=== PATIENT | male | born 1965 | race African-American/Black ===

== ENCOUNTER 2019-10-02 01:11 | Emergency (ER) | payer SELFPAY ==
--- NOTE | 2019-10-02 02:13 | ER ---
Nurse's Notes [facility] Name: Samuel Guzman Age: 54 yrs Sex: Male : 1965 Arrival Date: 10/02/2019 Time: : Bed 20 Private MD: Diagnosis: Fever, unspecified Presentation: 10/01 01:35 Chief complaint: Patient states: pt states he has had a fever for 3 days is taking bb tylenol and benadryl he is concerned about having COVID because his is immunocompromised. Coronavirus screen: chills, fever. Ebola Screen: No symptoms or risks identified at this time. Initial Sepsis Screen: Does the patient meet any 2 criteria? No. Patient's initial sepsis screen is negative. Does the patient have a suspected source of infection? No. Patient's initial sepsis screen is negative. Risk Assessment: Do you want to hurt yourself or someone else? Patient reports no desire to harm self or others. Onset of symptoms was September 29, 2019. 01:35 Method Of Arrival: Ambulatory bb 01:35 Acuity: FRANCISCO 3 bb Triage Assessment: 01:37 General: Appears in no apparent distress. Behavior is calm, cooperative. Pain: Denies bb pain. Neuro: Level of Consciousness is awake, alert, obeys commands, Oriented to person, place, time, situation. Cardiovascular: Heart tones S1 S2 present Capillary refill < 3 seconds Patient's skin is warm and dry. Respiratory: Airway is patent Respiratory effort is even, unlabored, Respiratory pattern is regular. GI: No deficits noted. No signs and/or symptoms were reported involving the gastrointestinal system. Derm: Skin is moist, Skin is normal, Skin temperature is warm. Musculoskeletal: Circulation, motion, and sensation intact. Historical: - Allergies: 01:37 No Known Allergies; bb - Home Meds: 01:37 Metoprolol Tartrate Oral [Active]; bb - PMHx: 01:37 Hypertension; bb - PSHx: 01:37 None; bb - Immunization history:: Adult Immunizations up to date. - Social history:: Smoking status: Patient reports the use of cigarette tobacco products, denies chronic smoking, but will smoke occasionally, Patient/guardian denies using alcohol. Screenin:38 Abuse screen: Denies threats or abuse. Nutritional screening: No deficits noted. bb Tuberculosis screening: No symptoms or risk factors identified. Fall Risk None identified. Assessment: 01:38 Reassessment: No changes from previously documented assessment. see triage assessment. bb 03:01 Reassessment: Patient and/or family updated on plan of care and expected duration. Pain bb level reassessed. Patient is alert, oriented x 3, equal unlabored respirations, skin warm/dry/pink. pt verbalized understanding of and agrees to plan of care discharge instructions given pt ambulated with steady gait to exit. Vital Signs: 01:35 BP 163 / 93; Pulse 65; Resp 16 S; Temp 100(O); Pulse Ox 97% on R/A; Weight 83.91 kg bb (R); Height 5 ft. 11 in. (180.34 cm) (R); Pain 0/10; 03:01 BP 160 / 97; Pulse 61; Resp 16 S; Temp 98.7(O); Pulse Ox 98% on R/A; Pain 0/10; bb 01:35 Body Mass Index 25.80 (83.91 kg, 180.34 cm) bb ED Course: 01:17 Patient arrived in ED. es 01:22 Pierce Sharp MD is Attending Physician. tw4 01:37 Triage completed. bb 01:37 Arm band placed on Patient placed in an exam room, on a stretcher, on pulse oximetry. bb 01:38 Patient has correct armband on for positive identification. Bed in low position. Call bb light in reach. 01:42 Pierce Sharp MD is Attending Physician. tw4 03:02 No provider procedures requiring assistance completed. Patient did not have IV access bb during this emergency room visit. Administered Medications: No medications were administered Outcome: 02:12 Discharge ordered by . tw4 03:02 Discharged to home ambulatory. bb 03:02 Condition: stable 03:02 Discharge instructions given to patient, Instructed on discharge instructions, follow up and referral plans. Demonstrated understanding of instructions, follow-up care. 03:02 Patient left the ED. bb Addendum: 10/06/2019 09:14 Addendum: COVID-19 Result: Negative result given to RN to notify pt. Attempted to i w contact pt regarding negative COVID-19 swab results. Unable to leave voice mail due to the number provided was either not a working number, the voice mail has not been set up, or the voice mailbox is full.. Signatures: Kaity Purvis Brenda RN RN Bee Carey RN RN iw Wadley, Terrence, MD MD tw4
--- NOTE | 2019-10-02 02:13 | EDPHYS ---
Physician Documentation [facility] Name: Samuel Guzman Age: 54 yrs Sex: Male : 1965 Arrival Date: 10/02/2019 Time: :17 Bed 20 Private MD: ED Physician Pierce Sharp HPI: 10/01 05:28 This 54 yrs old Black Male presents to ER via Ambulatory with complaints of Fever, tw4 sweating. 05:28 The patient reports fever, not measured (subjective). tw4 05:28 Onset: The symptoms/episode began/occurred 3 day(s) ago. Modifying factors: there are tw4 no obvious modifying factors. Associated signs and symptoms: Pertinent positives:. Severity of symptoms: At their worst the symptoms were moderate in the emergency department the symptoms are unchanged. The patient has not experienced similar symptoms in the past. Historical: - Allergies: 01:37 No Known Allergies; bb - Home Meds: 01:37 Metoprolol Tartrate Oral [Active]; bb - PMHx: 01:37 Hypertension; bb - PSHx: 01:37 None; bb - Immunization history:: Adult Immunizations up to date. - Social history:: Smoking status: Patient reports the use of cigarette tobacco products, denies chronic smoking, but will smoke occasionally, Patient/guardian denies using alcohol. ROS: 05:28 Cardiovascular: Negative for chest pain, palpitations, and edema, Respiratory: Negative tw4 for shortness of breath, cough, wheezing, and pleuritic chest pain, Abdomen/GI: Negative for abdominal pain, nausea, vomiting, diarrhea, and constipation, Back: Negative for injury and pain, MS/Extremity: Negative for injury and deformity, Skin: Negative for injury, rash, and discoloration. 05:28 Constitutional: Positive for fever. Exam: 05:28 Constitutional: This is a well developed, well nourished patient who is awake, alert, tw4 and in no acute distress. Head/Face: Normocephalic, atraumatic. Chest/axilla: Normal chest wall appearance and motion. Nontender with no deformity. No lesions are appreciated. Cardiovascular: Regular rate and rhythm with a normal S1 and S2. No gallops, murmurs, or rubs. Normal PMI, no JVD. No pulse deficits. Respiratory: Lungs have equal breath sounds bilaterally, clear to auscultation and percussion. No rales, rhonchi or wheezes noted. No increased work of breathing, no retractions or nasal flaring. Abdomen/GI: Soft, non-tender, with normal bowel sounds. No distension or tympany. No guarding or rebound. No evidence of tenderness throughout. Back: No spinal tenderness. No costovertebral tenderness. Full range of motion. MS/ Extremity: Pulses equal, no cyanosis. Neurovascular intact. Full, normal range of motion. Neuro: Awake and alert, GCS 15, oriented to person, place, time, and situation. Cranial nerves II-XII grossly intact. Motor strength 5/5 in all extremities. Sensory grossly intact. Cerebellar exam normal. Normal gait. Vital Signs: 01:35 BP 163 / 93; Pulse 65; Resp 16 S; Temp 100(O); Pulse Ox 97% on R/A; Weight 83.91 kg bb (R); Height 5 ft. 11 in. (180.34 cm) (R); Pain 0/10; 03:01 BP 160 / 97; Pulse 61; Resp 16 S; Temp 98.7(O); Pulse Ox 98% on R/A; Pain 0/10; bb 01:35 Body Mass Index 25.80 (83.91 kg, 180.34 cm) bb MDM: 01:49 Patient medically screened. tw4 05:28 Differential diagnosis: viral Infection, bacterial infection, URI, bronchitis. Data tw4 reviewed: vital signs, nurses notes. Data reviewed: lab test result(s), Flu: negative. Data interpreted: Pulse oximetry: Interpretation: normal. Counseling: I had a detailed discussion with the patient and/or guardian regarding: the historical points, exam findings, and any diagnostic results supporting the discharge/admit diagnosis, lab results. Special discussion: I discussed with the patient/guardian in detail that at this point there is no indication for admission to the hospital. It is understood, however, that if the symptoms persist or worsen the patient needs to return immediately for re-evaluation. 10/01 01:22 Order name: COVID-19 [facility] 10/01 01:22 Order name: Flu 10/01 01:22 Order name: Strep 10/01 01:22 Order name: Document PUI#; Complete Time: 01:49 tw4 10/01 01:22 Order name: Droplet/Contact Precautions; Complete Time: : tw4 10/01 02:54 Order name: Throat Culture [facility] 10/01 01:22 Order name: Labs collected and sent; Complete Time: :4 10/01 01:22 Order name: Notify [facility] [phone]/ ; Complete Time: 4 10/01 01:22 Order name: O2 Per Protocol; Complete Time: tw4 Administered Medications: No medications were administered Disposition: 10/02/19 02:12 Discharged to Home. Impression: Fever, unspecified. - Condition is Stable. - Discharge Instructions: Fever, Adult. - Medication Reconciliation Form, Thank You Letter, Antibiotic Education, Prescription Opioid Use form. - Follow up: Private Physician; When: Upon discharge from the Emergency Department; Reason: Recheck today's complaints, Continuance of care, Re-evaluation by your physician. - Problem is new. - Symptoms have improved. Signatures: Dispatcher [employer] Mirtha Lacey, RICKEY RN Pierce Traore MD MD tw4 Corrections: (The following items were deleted from the chart) 03:02 02:12 10/02/2019 02:12 Discharged to Home. Impression: Fever, unspecified. Condition is bb Stable. Forms are Medication Reconciliation Form, Thank You Letter, Antibiotic Education, Prescription Opioid Use. Follow up: Private Physician; When: Upon discharge from the Emergency Department; Reason: Recheck today's complaints, Continuance of care, Re-evaluation by your physician. Problem is new. Symptoms have improved. tw4
[2019-10-02 03:10] VITALS: BP 160/97; TEMP 98.7; O2SAT 98
== END 2019-10-02 03:02 | disposition home or self-care (01) ==
LOC: ER 01:11
DX: R50.9 Fever, unspecified (principal); I10 Essential (primary) hypertension; F17.210 Nicotine dependence, cigarettes, uncomplicated; Z11.59 Encounter for screening for other viral diseases
CPT/HCPCS: 87070; 87081; 87804; 99283; U0002

== ENCOUNTER 2019-10-29 12:30 | Emergency (ER) | payer SELFPAY ==
--- NOTE | 2019-10-29 12:44 | ER ---
Nurse's Notes [facility] Name: Samuel Guzman Age: 54 yrs Sex: Male : 1965 Arrival Date: 10/29/2019 Time: 12:32 Bed 19 Private MD: Diagnosis: Encounter for Medication Refill Presentation: 10/28 12:38 Chief complaint: Patient states: just moved down here from [place], only has three iw pills left of his metoprolol 50 mg, takes twice a day, is needing a refill. Coronavirus screen: At this time, the client does not indicate any symptoms associated with coronavirus-19. Ebola Screen: Patient negative for fever greater than or equal to 101.5 degrees Fahrenheit, and additional compatible Ebola Virus Disease symptoms Patient denies exposure to infectious person. Patient denies travel to an Ebola-affected area in the 21 days before illness onset. No symptoms or risks identified at this time. Initial Sepsis Screen: Does the patient meet any 2 criteria? No. Patient's initial sepsis screen is negative. Does the patient have a suspected source of infection? No. Patient's initial sepsis screen is negative. Risk Assessment: Do you want to hurt yourself or someone else? Patient reports no desire to harm self or others. Onset of symptoms was October 29, 2019. 12:38 Method Of Arrival: Ambulatory iw 12:38 Acuity: FRANCISCO 4 iw Historical: - Allergies: 12:40 No Known Allergies; iw - Home Meds: 12:40 metoprolol tartrate 50 mg oral tab 2 times per day [Active]; iw - PMHx: 12:40 Hypertension; iw - PSHx: 12:40 None; iw - Immunization history:: Adult Immunizations up to date. - Social history:: Smoking status: unknown. Screenin:57 Abuse screen: Denies threats or abuse. Denies injuries from another. Nutritional jr10 screening: No deficits noted. Tuberculosis screening: No symptoms or risk factors identified. Fall Risk None identified. Assessment: 12:57 General: Appears in no apparent distress. Behavior is calm, cooperative, appropriate jr10 for age. Pain: Denies pain. Neuro: No deficits noted. Cardiovascular: No deficits noted. Denies chest pain. Respiratory: No deficits noted. GI: No deficits noted. No signs and/or symptoms were reported involving the gastrointestinal system. : No deficits noted. No signs and/or symptoms were reported regarding the genitourinary system. EENT: No deficits noted. No signs and/or symptoms were reported regarding the EENT system. Derm: No deficits noted. No signs and/or symptoms reported regarding the dermatologic system. Musculoskeletal: No deficits noted. No signs and/or symptoms reported regarding the musculoskeletal system. Vital Signs: 12:38 BP 168 / 100; Pulse 57; Resp 16; Temp 97.3; Pulse Ox 100% on R/A; Weight 88.45 kg; iw Height 5 ft. 11 in. (180.34 cm); 12:38 Body Mass Index 27.20 (88.45 kg, 180.34 cm) ED Course: 12:32 Patient arrived in ED. ag5 12:39 Triage completed. iw 12:43 Hadley Medina PA is PHCP. jr8 12:43 Luis Bullard MD is Attending Physician. jr8 12:57 Patient has correct armband on for positive identification. Bed in low position. Call jr10 light in reach. Side rails up X 1. Cardiac monitoring not applicable on this patient. 12:58 Arm band placed on. jr10 12:58 No provider procedures requiring assistance completed. Patient did not have IV access jr10 during this emergency room visit. Administered Medications: No medications were administered Outcome: 12:43 Discharge ordered by . jr8 12:58 Discharged to home ambulatory. jr10 12:58 Condition: good 12:58 Discharge instructions given to patient, Instructed on discharge instructions, follow up and referral plans. Demonstrated understanding of instructions, follow-up care, medications, Prescriptions given X 1. 12:58 Patient left the ED. jr10 Signatures: Bee Agudelo, RN RN Hadley Medina PA PA jr8 Panchito Duarte ag5 Theresa Gerardo RN RN jr10 Corrections: (The following items were deleted from the chart) 12:39 12:38 Acuity: FRANCISCO 3 [facility]
--- NOTE | 2019-10-29 12:44 | EDPHYS ---
Physician Documentation [facility] Name: Samuel Guzman Age: 54 yrs Sex: Male : 1965 Arrival Date: 10/29/2019 Time: 12:32 Bed 19 Private MD: ED Physician Luis Bullard HPI: 10/28 12:47 This 54 yrs old Black Male presents to ER via Ambulatory with complaints of Medication jr8 Refill. 12:47 The patient presents to the emergency department requesting refill(s) for: Lopressor. jr8 The patient chronically suffers from hypertension. It is unknown whether or not the patient has had similar symptoms in the past. The patient has not recently seen a physician. Patient from [facility] and could not get medications refilled . Historical: - Allergies: 12:40 No Known Allergies; iw - Home Meds: 12:40 metoprolol tartrate 50 mg oral tab 2 times per day [Active]; iw - PMHx: 12:40 Hypertension; iw - PSHx: 12:40 None; iw - Immunization history:: Adult Immunizations up to date. - Social history:: Smoking status: unknown. ROS: 12:47 Eyes: Negative for injury, pain, redness, and discharge, ENT: Negative for injury, jr8 pain, and discharge, Neck: Negative for injury, pain, and swelling, Cardiovascular: Negative for chest pain, palpitations, and edema, Respiratory: Negative for shortness of breath, cough, wheezing, and pleuritic chest pain, Abdomen/GI: Negative for abdominal pain, nausea, vomiting, diarrhea, and constipation, Back: Negative for injury and pain, MS/Extremity: Negative for injury and deformity, Skin: Negative for injury, rash, and discoloration, Neuro: Negative for headache, weakness, numbness, tingling, and seizure. Exam: 12:47 Eyes: Pupils equal round and reactive to light, extra-ocular motions intact. Lids and jr8 lashes normal. Conjunctiva and sclera are non-icteric and not injected. Cornea within normal limits. Periorbital areas with no swelling, redness, or edema. ENT: Nares patent. No nasal discharge, no septal abnormalities noted. Tympanic membranes are normal and external auditory canals are clear. Oropharynx with no redness, swelling, or masses, exudates, or evidence of obstruction, uvula midline. Mucous membranes moist. Neck: Trachea midline, no thyromegaly or masses palpated, and no cervical lymphadenopathy. Supple, full range of motion without nuchal rigidity, or vertebral point tenderness. No Meningismus. Cardiovascular: Regular rate and rhythm with a normal S1 and S2. No gallops, murmurs, or rubs. Normal PMI, no JVD. No pulse deficits. Respiratory: Lungs have equal breath sounds bilaterally, clear to auscultation and percussion. No rales, rhonchi or wheezes noted. No increased work of breathing, no retractions or nasal flaring. Abdomen/GI: Soft, non-tender, with normal bowel sounds. No distension or tympany. No guarding or rebound. No evidence of tenderness throughout. Skin: Warm, dry with normal turgor. Normal color with no rashes, no lesions, and no evidence of cellulitis. MS/ Extremity: Pulses equal, no cyanosis. Neurovascular intact. Full, normal range of motion. Neuro: Awake and alert, GCS 15, oriented to person, place, time, and situation. Cranial nerves II-XII grossly intact. Motor strength 5/5 in all extremities. Sensory grossly intact. Cerebellar exam normal. Normal gait. Vital Signs: 12:38 BP 168 / 100; Pulse 57; Resp 16; Temp 97.3; Pulse Ox 100% on R/A; Weight 88.45 kg; iw Height 5 ft. 11 in. (180.34 cm); 12:38 Body Mass Index 27.20 (88.45 kg, 180.34 cm) iw MDM: 12:43 Patient medically screened. [facility] 12:47 Data reviewed: vital signs, nurses notes, and as a result, I will discharge patient. [facility] Data interpreted: Pulse oximetry: on room air is 100 %. Interpretation: normal. Counseling: I had a detailed discussion with the patient and/or guardian regarding: the historical points, exam findings, and any diagnostic results supporting the discharge/admit diagnosis, the need for outpatient follow up, a family practitioner, to return to the emergency department if symptoms worsen or persist or if there are any questions or concerns that arise at home. Administered Medications: No medications were administered Disposition: 14:00 Co-signature as Attending Physician, Luis Bullard MD. rn Disposition: 10/29/19 12:43 Discharged to Home. Impression: Encounter for Medication Refill . - Condition is Stable. - Prescriptions for Metoprolol Tartrate 50 mg Oral Tablet - take 1 tablet by ORAL route 2 times per day take with meal; 60 tablet. - Medication Reconciliation Form, Thank You Letter, Antibiotic Education, Prescription Opioid Use form. - Follow up: Private Physician; When: As needed; Reason: Recheck today's complaints, Continuance of care, Re-evaluation by your physician. - Problem is new. - Symptoms have improved. Signatures: Bee Agudelo, RN RN Luis Delgado MD MD rn Roszak, Josh, PA PA jr8 Theresa Gerardo RN RN jr10 Corrections: (The following items were deleted from the chart) 12:58 12:43 10/29/2019 12:43 Discharged to Home. Impression: Encounter for Medication Refill jr10 . Condition is Stable. Forms are Medication Reconciliation Form, Thank You Letter, Antibiotic Education, Prescription Opioid Use. Follow up: Private Physician; When: As needed; Reason: Recheck today's complaints, Continuance of care, Re-evaluation by your physician. Problem is new. Symptoms have improved. jr8
[2019-10-29 13:13] VITALS: BP 168/100; TEMP 97.3; O2SAT 100
== END 2019-10-29 12:58 | disposition home or self-care (01) ==
LOC: ER 12:30
DX: Z76.0 Encounter for issue of repeat prescription (principal); I10 Essential (primary) hypertension
CPT/HCPCS: 99282

== ENCOUNTER 2019-11-25 17:15 | Emergency (ER) | payer SELFPAY ==
--- NOTE | 2019-11-25 18:23 | EDPHYS ---
Physician Documentation [facility] Name: Samuel Guzman Age: 54 yrs Sex: Male : 1965 Arrival Date: 11/25/2019 Time: 17:16 Bed Waiting Private MD: ED Physician Luis Bullard HPI: 11/24 18:22 This 54 yrs old Black Male presents to ER via Ambulatory with complaints of Medication pm1 Refill. 18:22 The patient presents to the emergency department requesting refill(s) for: metoprolol. pm1 The patient chronically suffers from hypertension. The patient has not recently seen a physician, and does not have an established primary care provider, the patient recently changed insurance plans. Patient is here with his so he wanted to get a prescription refill of his blood pressure medications that we gave him last month. Historical: - Allergies: 17:22 No Known Allergies; ll1 - PMHx: 17:22 Hypertension; ll1 - Immunization history:: Flu vaccine is not up to date. - Social history:: Smoking status: Patient reports the use of cigarette tobacco products, smokes one-half pack cigarettes per day. ROS: 18:22 Constitutional: Negative for fever, chills, and weight loss, Eyes: Negative for injury, pm1 pain, redness, and discharge, ENT: Negative for injury, pain, and discharge, Neck: Negative for injury, pain, and swelling, Cardiovascular: Negative for chest pain, palpitations, and edema, Respiratory: Negative for shortness of breath, cough, wheezing, and pleuritic chest pain, Abdomen/GI: Negative for abdominal pain, nausea, vomiting, diarrhea, and constipation, Back: Negative for injury and pain, MS/Extremity: Negative for injury and deformity, Skin: Negative for injury, rash, and discoloration, Neuro: Negative for headache, weakness, numbness, tingling, and seizure. Exam: 18:22 Constitutional: This is a well developed, well nourished patient who is awake, alert, pm1 and in no acute distress. Head/Face: Normocephalic, atraumatic. 18:22 Back: No spinal tenderness. No costovertebral tenderness. Full range of motion. Skin: Warm, dry with normal turgor. Normal color with no rashes, no lesions, and no evidence of cellulitis. MS/ Extremity: Pulses equal, no cyanosis. Neurovascular intact. Full, normal range of motion. 18:22 Cardiovascular: Exam negative for acute changes, Rate: normal, Rhythm: regular, Pulses: no pulse deficits are appreciated. 18:22 Respiratory: Exam negative for acute changes, respiratory distress, shortness of breath. 18:22 Neuro: Exam negative for acute changes, Orientation: is normal, Mentation: is normal, Motor: is normal, moves all fours. Vital Signs: 17:20 BP 176 / 99; Pulse 64; Resp 17; Temp 98.1; Pulse Ox 97% ; Weight 88.45 kg; Height 5 ft. ll1 11 in. (180.34 cm); Pain 0/10; 17:20 Body Mass Index 27.20 (88.45 kg, 180.34 cm) ll1 MDM: 18:20 Data reviewed: vital signs. Data interpreted: Pulse oximetry: on is 97 %. pm1 Interpretation: normal. Counseling: I had a detailed discussion with the patient and/or guardian regarding: the historical points, exam findings, and any diagnostic results supporting the discharge/admit diagnosis, the need for outpatient follow up. 18:22 Patient medically screened. pm1 Administered Medications: No medications were administered Disposition: 18:27 Co-signature as Attending Physician, Luis Bullard MD. rn Disposition: 11/25/19 18:22 Discharged to Home. Impression: Encounter for issue of repeat prescription. - Condition is Stable. - Discharge Instructions: Medicine Refill at the Emergency Department. - Prescriptions for Metoprolol Tartrate 50 mg Oral Tablet - take 1 tablet by ORAL route 2 times per day take with meal; 60 tablet. - Medication Reconciliation Form, Thank You Letter, Antibiotic Education, Prescription Opioid Use form. - Follow up: Emergency Department; When: As needed; Reason: Worsening of condition. Follow up: Private Physician; When: 2 - 3 days; Reason: Recheck today's complaints, Continuance of care, Re-evaluation by your physician. - Problem is new. - Symptoms have improved. Signatures: Luis Bullard MD MD rn Marinas, Patrick, [employer] pm1 Ian Lara, RN RN ll1 Corrections: (The following items were deleted from the chart) 18:26 18:22 11/25/2019 18:22 Discharged to Home. Impression: Encounter for issue of repeat ll1 prescription. Condition is Stable. Forms are Medication Reconciliation Form, Thank You Letter, Antibiotic Education, Prescription Opioid Use. Follow up: Emergency Department; When: As needed; Reason: Worsening of condition. Follow up: Private Physician; When: 2 - 3 days; Reason: Recheck today's complaints, Continuance of care, Re-evaluation by your physician. Problem is new. Symptoms have improved. pm1
--- NOTE | 2019-11-25 18:23 | ER ---
Nurse's Notes [facility] Name: Samuel Guzman Age: 54 yrs Sex: Male : 1965 Arrival Date: 11/25/2019 Time: 17:16 Bed Waiting [facility] MD: Diagnosis: Encounter for issue of repeat prescription Presentation: 11/24 17:20 Chief complaint: Patient states: Out of BP med for 3 days, can't remember name, we ll1 prescribed it last month. + PARR's, none now. Coronavirus screen: Client denies travel out of the [place] in the last 14 days. At this time, the client does not indicate any symptoms associated with coronavirus-19. Ebola Screen: Patient denies travel to an Ebola-affected area in the 21 days before illness onset. Initial Sepsis Screen: Does the patient meet any 2 criteria? No. Patient's initial sepsis screen is negative. Does the patient have a suspected source of infection? No. Patient's initial sepsis screen is negative. Risk Assessment: Do you want to hurt yourself or someone else? Patient reports no desire to harm self or others. Onset of symptoms was November 23, 2019. 17:20 Method Of Arrival: Ambulatory ll1 17:20 Acuity: FRANCISCO 4 ll1 Historical: - Allergies: 17:22 No Known Allergies; ll1 - PMHx: 17:22 Hypertension; ll1 - Immunization history:: Flu vaccine is not up to date. - Social history:: Smoking status: Patient reports the use of cigarette tobacco products, smokes one-half pack cigarettes per day. Screenin:24 Abuse screen: Denies threats or abuse. Nutritional screening: No deficits noted. ll1 Tuberculosis screening: No symptoms or risk factors identified. Fall Risk None identified. Total Fernández Fall Scale indicates No Risk (0-24 pts). Assessment: 18:23 General: Appears in no apparent distress. Behavior is calm, cooperative. General: needs ll1 metoprolol refill. . Pain: Denies pain. Neuro: No deficits noted. Cardiovascular: No deficits noted. Respiratory: No deficits noted. Vital Signs: 17:20 BP 176 / 99; Pulse 64; Resp 17; Temp 98.1; Pulse Ox 97% ; Weight 88.45 kg; Height 5 ft. ll1 11 in. (180.34 cm); Pain 0/10; 17:20 Body Mass Index 27.20 (88.45 kg, 180.34 cm) ll1 ED Course: 17:16 Patient arrived in ED. ag5 17:22 Triage completed. ll1 17:23 Arm band placed on. ll1 18:12 Franc Wyatt NP is PHCP. pm1 18:12 Luis Bullard MD is Attending Physician. pm1 18:24 Patient has correct armband on for positive identification. Bed in low position. Call ll1 light in reach. Side rails up X 1. Cardiac monitoring not applicable on this patient. 18:24 No provider procedures requiring assistance completed. Patient did not have IV access ll1 during this emergency room visit. Administered Medications: No medications were administered Outcome: 18:22 Discharge ordered by . pm1 18:24 Discharged to home ambulatory. ll1 18:24 Condition: stable 18:24 Discharge instructions given to patient, Instructed on discharge instructions, follow up and referral plans. medication usage, Demonstrated understanding of instructions, follow-up care, medications, Prescriptions given X 1. 18:26 Patient left the ED. ll1 Signatures: Franc Wyatt NP [employer] pm1 Panchito Duarte ag5 Ian Lara RN RN ll1
[2019-11-25 19:10] VITALS: BP 176/99; TEMP 98.1; O2SAT 97
== END 2019-11-25 18:26 | disposition home or self-care (01) ==
LOC: ER 17:15
DX: Z76.0 Encounter for issue of repeat prescription (principal)
CPT/HCPCS: 99282

== ENCOUNTER 2020-04-23 14:37 | Emergency (ER) | payer SELFPAY ==
--- NOTE | 2020-04-23 16:41 | EDPHYS ---
Physician Documentation [facility] Name: Samuel Guzman Age: 55 yrs Sex: Male : 1965 Arrival Date: 04/23/2020 Time: 14:41 Bed 27 Private MD: ED Physician William Brasher HPI: 04/23 16:51 This 55 yrs old Black Male presents to ER via Ambulatory with complaints of High Blood kdr Pressure, Headache. 16:51 The patient has elevated blood pressure and discovered this at home. Onset: The kdr symptoms/episode began/occurred at an unknown time. Modifying factors: The symptoms are aggravated by Out of meds for 4 days. Associated signs and symptoms: Pertinent positives: headache, resolved now. Severity of symptoms: At its worst the blood pressure was moderate, in the emergency department the blood pressure is improved, moderately. The patient has experienced similar episodes in the past, chronically. The patient has not recently seen a physician. Historical: - Allergies: 14:53 No Known Allergies; jd3 - Home Meds: 14:53 metoprolol tartrate 50 mg Oral tab 2 times per day [Active]; jd3 - PMHx: 14:53 Hypertension; jd3 - PSHx: 14:53 None; jd3 - Immunization history:: Adult Immunizations up to date. - Social history:: Smoking status: Patient reports the use of cigarette tobacco products, smokes one-half pack cigarettes per day. ROS: 16:51 Constitutional: Negative for fever, chills, and weight loss, Eyes: Negative for injury, kdr pain, redness, and discharge, ENT: Negative for injury, pain, and discharge, Neck: Negative for injury, pain, and swelling, Cardiovascular: Negative for chest pain, palpitations, and edema, Respiratory: Negative for shortness of breath, cough, wheezing, and pleuritic chest pain, Abdomen/GI: Negative for abdominal pain, nausea, vomiting, diarrhea, and constipation, Back: Negative for injury and pain, : Negative for injury, bleeding, discharge, and swelling, MS/Extremity: Negative for injury and deformity, Skin: Negative for injury, rash, and discoloration, Psych: Negative for depression, anxiety, suicide ideation, homicidal ideation, and hallucinations, Allergy/Immunology: Negative for hives, rash, and allergies, Endocrine: Negative for neck swelling, polydipsia, polyuria, polyphagia, and marked weight changes, Hematologic/Lymphatic: Negative for swollen nodes, abnormal bleeding, and unusual bruising. 16:51 Neuro: Positive for headache, Negative for altered mental status, dizziness, hearing loss, loss of consciousness, numbness, seizure activity, speech changes, syncope, near syncope, tingling, tinnitus, tremor, visual changes, weakness. Exam: 16:51 Constitutional: This is a well developed, well nourished patient who is awake, alert, kdr and in no acute distress. Head/Face: Normocephalic, atraumatic. Eyes: Pupils equal round and reactive to light, extra-ocular motions intact. Lids and lashes normal. Conjunctiva and sclera are non-icteric and not injected. Cornea within normal limits. Periorbital areas with no swelling, redness, or edema. Neck: Trachea midline, no thyromegaly or masses palpated, and no cervical lymphadenopathy. Supple, full range of motion without nuchal rigidity, or vertebral point tenderness. No Meningismus. Chest/axilla: Normal chest wall appearance and motion. Nontender with no deformity. No lesions are appreciated. Cardiovascular: Regular rate and rhythm with a normal S1 and S2. No gallops, murmurs, or rubs. Normal PMI, no JVD. No pulse deficits. Respiratory: Lungs have equal breath sounds bilaterally, clear to auscultation and percussion. No rales, rhonchi or wheezes noted. No increased work of breathing, no retractions or nasal flaring. Abdomen/GI: Soft, non-tender, with normal bowel sounds. No distension or tympany. No guarding or rebound. No evidence of tenderness throughout. Back: No spinal tenderness. No costovertebral tenderness. Full range of motion. Skin: Warm, dry with normal turgor. Normal color with no rashes, no lesions, and no evidence of cellulitis. MS/ Extremity: Pulses equal, no cyanosis. Neurovascular intact. Full, normal range of motion. Neuro: Awake and alert, GCS 15, oriented to person, place, time, and situation. Cranial nerves II-XII grossly intact. Motor strength 5/5 in all extremities. Sensory grossly intact. Cerebellar exam normal. Normal gait. Psych: Awake, alert, with orientation to person, place and time. Behavior, mood, and affect are within normal limits. Vital Signs: 14:53 BP 153 / 103; Pulse 99; Resp 17 S; Temp 97.9(TE); Pulse Ox 98% on R/A; Weight 88.45 kg jd3 (R); Height 5 ft. 11 in. (180.34 cm) (R); Pain 9/10; 14:53 Body Mass Index 27.20 (88.45 kg, 180.34 cm) jd3 MDM: 16:41 Patient medically screened. kdr 16:51 Data reviewed: vital signs, nurses notes. Counseling: I had a detailed discussion with kdr the patient and/or guardian regarding: the historical points, exam findings, and any diagnostic results supporting the discharge/admit diagnosis, the need for outpatient follow up. Special discussion: I discussed with the patient/guardian in detail that at this point there is no indication for admission to the hospital. It is understood, however, that if the symptoms persist or worsen the patient needs to return immediately for re-evaluation. ED course: The patient was pain free in the ED and asymptotic in every way. 03 16:34 Order name: EKG; Complete Time: 16:35 kdr Administered Medications: No medications were administered Disposition: 04/23/20 16:41 Discharged to Home. Impression: Hypertensive heart disease - Poorly controlled . - Condition is Stable. - Discharge Instructions: Hypertension, [id number]. - Prescriptions for Metoprolol Tartrate 50 mg Oral Tablet - take 1 tablet by ORAL route 2 times per day take with meal; 60 tablet. - Medication Reconciliation Form, Thank You Letter form. - Follow up: Private Physician; When: 2 - 3 days; Reason: If symptoms return, Further diagnostic work-up, Recheck today's complaints, Continuance of care, Re-evaluation by your physician. - Problem is an acute exacerbation. - Symptoms have improved. Signatures: Dispatcher [employer] EDMS William Brasher MD MD kdr Davies, Jonathon, RN RN jd3 Brown, Zipporah, RN RN zb Corrections: (The following items were deleted from the chart) 16:39 16:34 Cardiac monitoring ordered. kdr zb 16:39 16:34 EKG - Nurse/Tech ordered. kdr zb 16:39 16:34 IV Saline Lock ordered. kdr zb 16:39 16:34 Labs collected and sent ordered. kdr zb 16:39 16:34 Oxygen Per Protocol ordered. kdr zb 16:40 16:34 O2 Sat Monitoring ordered. kdr zb 16:43 16:35 Head Brain Wo Cont+CT.RAD.BRZ ordered. EDMS EDMS 16:49 16:41 04/23/2020 16:41 Discharged to Home. Impression: Hypertensive heart disease - zb Poorly controlled . Condition is Stable. Forms are Medication Reconciliation Form, Thank You Letter, Antibiotic Education, Prescription Opioid Use. Follow up: Private Physician; When: 2 - 3 days; Reason: If symptoms return, Further diagnostic work-up, Recheck today's complaints, Continuance of care, Re-evaluation by your physician. Problem is an acute exacerbation. Symptoms have improved. kdr
--- NOTE | 2020-04-23 16:41 | ER ---
Nurse's Notes [facility] Name: Samuel Guzman Age: 55 yrs Sex: Male : 1965 Arrival Date: 04/23/2020 Time: 14:41 Bed 27 Private MD: Diagnosis: Hypertensive heart disease-Poorly controlled Presentation: 04/23 14:50 Chief complaint: Patient states: "I am needing to get my blood pressure under control jd3 and get my prescriptions filled. I also just noticed last night that my urine was real dark. I drink a lot of coffee and the color was similar.". Coronavirus screen: At this time, the client does not indicate any symptoms associated with coronavirus-19. Ebola Screen: Patient negative for fever greater than or equal to 101.5 degrees Fahrenheit, and additional compatible Ebola Virus Disease symptoms. Initial Sepsis Screen: Does the patient meet any 2 criteria? No. Patient's initial sepsis screen is negative. Does the patient have a suspected source of infection? No. Patient's initial sepsis screen is negative. Risk Assessment: Do you want to hurt yourself or someone else? Patient reports no desire to harm self or others. Onset of symptoms was April 22, 2020. 14:50 Method Of Arrival: Ambulatory jd3 14:50 Acuity: FRANCISCO 3 jd3 Triage Assessment: 16:30 Headache History: Other n/a. Pain: Also complains of no other associated symptoms. zb Historical: - Allergies: 14:53 No Known Allergies; jd3 - Home Meds: 14:53 metoprolol tartrate 50 mg Oral tab 2 times per day [Active]; jd3 - PMHx: 14:53 Hypertension; jd3 - PSHx: 14:53 None; jd3 - Immunization history:: Adult Immunizations up to date. - Social history:: Smoking status: Patient reports the use of cigarette tobacco products, smokes one-half pack cigarettes per day. Screenin:49 Abuse screen: Denies threats or abuse. Denies injuries from another. Nutritional zb screening: No deficits noted. Tuberculosis screening: No symptoms or risk factors identified. Fall Risk None identified. Assessment: 16:47 General: Appears in no apparent distress. comfortable, Behavior is calm, cooperative, zb appropriate for age. Pain: Complains of pain in forehead Pain does not radiate. Quality of pain is described as aching. Neuro: Level of Consciousness is awake, alert, obeys commands, Oriented to person, place, time, situation, Manager Salt are equal bilaterally Moves all extremities. Full function Gait is steady, Speech is normal, Facial symmetry appears normal, Pupils are PERRLA, Intact. Cardiovascular: Capillary refill < 3 seconds Patient's skin is warm and dry. Respiratory: Airway is patent Respiratory effort is even, unlabored, Respiratory pattern is regular, symmetrical. GI: No signs and/or symptoms were reported involving the gastrointestinal system. : No signs and/or symptoms were reported regarding the genitourinary system. EENT: No signs and/or symptoms were reported regarding the EENT system. Derm: Skin is intact, is healthy with good turgor, Skin is dry, Skin is normal, Skin temperature is warm. Musculoskeletal: Range of motion: intact in all extremities. Vital Signs: 14:53 BP 153 / 103; Pulse 99; Resp 17 S; Temp 97.9(TE); Pulse Ox 98% on R/A; Weight 88.45 kg jd3 (R); Height 5 ft. 11 in. (180.34 cm) (R); Pain 9/10; 14:53 Body Mass Index 27.20 (88.45 kg, 180.34 cm) jd3 ED Course: 14:41 Patient arrived in ED. am2 14:52 Triage completed. jd3 14:54 Arm band placed on. jd3 16:30 No provider procedures requiring assistance completed. Patient did not have IV access zb during this emergency room visit. 16:33 William Brasher MD is Attending Physician. kdr 16:37 Dori Ritter, RICKEY is Primary Nurse. zb 16:49 Patient has correct armband on for positive identification. Pulse ox on. NIBP on. Door zb closed. Noise minimized. Administered Medications: No medications were administered Outcome: 16:41 Discharge ordered by . kdr 16:45 Discharged to home ambulatory. zb 16:45 Condition: stable 16:45 Discharge instructions given to patient, Instructed on discharge instructions, follow up and referral plans. medication usage, Demonstrated understanding of instructions, follow-up care, medications, Prescriptions given X 1. 16:49 Patient left the ED. zb Signatures: William Brasher MD MD Poornima Lynn Jonathon, RN RN jd3 Dori Ritter, RN RN zb
[2020-04-23 22:06] VITALS: BP 153/103; TEMP 97.9; O2SAT 98
== END 2020-04-23 16:49 | disposition home or self-care (01) ==
LOC: ER 14:37
DX: I11.9 Hypertensive heart disease without heart failure (principal); I10 Essential (primary) hypertension; F17.210 Nicotine dependence, cigarettes, uncomplicated
CPT/HCPCS: 99283

== ENCOUNTER 2020-06-06 12:52 | Emergency (ER) | payer SELFPAY ==
[2020-06-06] MEDS ORDERED: AMLODIPINE 10 MG TAB ONE (13:51)
[2020-06-06] MEDS ORDERED: NA CHLORIDE 0.9% 1,000 ML ONE (13:52)
[2020-06-06 13:57] LABS: Protime INR 1.09
[2020-06-06 14:00] LABS: Absolute Lymphocytes (CBC) 1.8 K/uL (0.7-4.9); Basophils % 1.1 % (0-1.3); Hematocrit 40.9 % (39.6-49.0); Lymphocytes % 25.6 % (15.3-44.8); MPV 8.5 fL (7.6-11.3); RBC Red Blood Cell Count 4.68 M/uL (4.33-5.43)
[2020-06-06 14:12] LABS: ALT/SGPT 19 U/L (12-78); AST/SGOT 21 U/L (15-37); Albumin 3.9 g/dL (3.4-5.0); Alkaline Phosphatase 77 U/L (45-117); BUN Blood Urea Nitrogen 11 mg/dL (7-18); Bicarbonate 26 mmol/L (21-32); Bilirubin Direct 0.1 mg/dL (0-0.2); Bilirubin Total 0.6 mg/dL (0.2-1.0); Glucose Level 80 mg/dL (74-106); Lipase 119 U/L (73-393); Magnesium 2.1 mg/dL (1.8-2.4); NT PRO-BNP 37 pg/mL (<125); Protein, Total 7.8 g/dL (6.4-8.2); Sodium Level 139 mmol/L (136-145); Troponin (Emerg Dept Use Only) < 0.02 ng/mL (0.0-0.045)
--- NOTE | 2020-06-06 14:25 | EDPHYS ---
Physician Documentation [facility] Name: Samuel Guzman Age: 55 yrs Sex: Male : 1965 Arrival Date: 06/06/2020 Time: 12:53 Bed 18 Private MD: ED Physician Cyril Maria HPI: 06/06 13:20 This 55 yrs old Black Male presents to ER via Unassigned with complaints of Blood jana Pressure Problem. 13:20 The patient complains of pain to the forehead, left frontal area and right frontal jana area. The patient describes the headache as aching. Onset: The symptoms/episode began/occurred 3 day(s) ago. Severity of symptoms: At its worst the pain was mild, in the emergency department the pain is unchanged. Headache History: The patient has had previous headaches and this one is similar to previous episodes. The patient has experienced similar episodes in the past, several times. Historical: - Allergies: 13:05 No Known Allergies; aa5 - Home Meds: 13:05 metoprolol tartrate 50 mg Oral tab 2 times per day [Active]; aa5 - PMHx: 13:05 Hypertension; aa5 - PSHx: 13:05 None; aa5 - Immunization history:: Adult Immunizations up to date, . - Family history:: not pertinent. - Social history:: Smoking status: Patient denies any tobacco usage or history of. ROS: 13:20 Constitutional: Negative for fever, chills, and weight loss, Eyes: Negative for injury, jana pain, redness, and discharge, ENT: Negative for injury, pain, and discharge, Neck: Negative for injury, pain, and swelling, Cardiovascular: Negative for chest pain, palpitations, and edema, Respiratory: Negative for shortness of breath, cough, wheezing, and pleuritic chest pain, Abdomen/GI: Negative for abdominal pain, nausea, vomiting, diarrhea, and constipation, Back: Negative for injury and pain, : Negative for injury, bleeding, discharge, and swelling, MS/Extremity: Negative for injury and deformity, Skin: Negative for injury, rash, and discoloration, Psych: Negative for depression, anxiety, suicide ideation, homicidal ideation, and hallucinations, Allergy/Immunology: Negative for hives, rash, and allergies, Endocrine: Negative for neck swelling, polydipsia, polyuria, polyphagia, and marked weight changes, Hematologic/Lymphatic: Negative for swollen nodes, abnormal bleeding, and unusual bruising. 13:20 Neuro: Positive for headache. Exam: 13:20 Constitutional: This is a well developed, well nourished patient who is awake, alert, jana and in no acute distress. Head/Face: Normocephalic, atraumatic. Eyes: Pupils equal round and reactive to light, extra-ocular motions intact. Lids and lashes normal. Conjunctiva and sclera are non-icteric and not injected. Cornea within normal limits. Periorbital areas with no swelling, redness, or edema. ENT: Nares patent. No nasal discharge, no septal abnormalities noted. Tympanic membranes are normal and external auditory canals are clear. Oropharynx with no redness, swelling, or masses, exudates, or evidence of obstruction, uvula midline. Mucous membranes moist. Neck: Trachea midline, no thyromegaly or masses palpated, and no cervical lymphadenopathy. Supple, full range of motion without nuchal rigidity, or vertebral point tenderness. No Meningismus. Chest/axilla: Normal chest wall appearance and motion. Nontender with no deformity. No lesions are appreciated. Cardiovascular: Regular rate and rhythm with a normal S1 and S2. No gallops, murmurs, or rubs. Normal PMI, no JVD. No pulse deficits. Respiratory: Lungs have equal breath sounds bilaterally, clear to auscultation and percussion. No rales, rhonchi or wheezes noted. No increased work of breathing, no retractions or nasal flaring. Abdomen/GI: Soft, non-tender, with normal bowel sounds. No distension or tympany. No guarding or rebound. No evidence of tenderness throughout. Back: No spinal tenderness. No costovertebral tenderness. Full range of motion. Male : Normal genitalia with no discharge or lesions. Skin: Warm, dry with normal turgor. Normal color with no rashes, no lesions, and no evidence of cellulitis. MS/ Extremity: Pulses equal, no cyanosis. Neurovascular intact. Full, normal range of motion. Neuro: Awake and alert, GCS 15, oriented to person, place, time, and situation. Cranial nerves II-XII grossly intact. Motor strength 5/5 in all extremities. Sensory grossly intact. Cerebellar exam normal. Normal gait. Psych: Awake, alert, with orientation to person, place and time. Behavior, mood, and affect are within normal limits. 14:02 ECG was reviewed by the Attending Physician. [facility] Vital Signs: 13:03 BP 187 / 112; Pulse 96; Resp 18 S; Temp 98.0(O); Pulse Ox 100% on R/A; Weight 90.72 kg aa5 (R); Height 5 ft. 11 in. (180.34 cm) (R); Pain 8/10; 15:00 BP 143 / 90; Pulse 73; Resp 18; Temp 98; Pulse Ox 99% ; bp 13:03 Body Mass Index 27.89 (90.72 kg, 180.34 cm) aa5 Edelmira Coma Score: 13:22 Eye Response: spontaneous(4). Verbal Response: oriented(5). Motor Response: obeys [facility] commands(6). Total: 15. MDM: 13:11 Patient medically screened. [facility] 13:22 Differential diagnosis: hypertensive headache, migraine, vasomotor headache. Data [facility] reviewed: vital signs, nurses notes, lab test result(s), EKG, radiologic studies, plain films. Data interpreted: ekg monitor tech: rate is 96 beats/min, rhythm is regular, Pulse oximetry: on room air is 100 %. Test interpretation: by ED physician or midlevel provider: ECG, plain radiologic studies. Counseling: I had a detailed discussion with the patient and/or guardian regarding: the historical points, exam findings, and any diagnostic results supporting the discharge/admit diagnosis, the presence of at least one elevated blood pressure reading (>120/80) during this emergency department visit, lab results, radiology results. 06/06 13:19 Order name: Basic Metabolic Panel [facility] 06/06 13:19 Order name: CBC with Diff 06/06 13:19 Order name: LFT's 06/06 13:19 Order name: Magnesium [facility] 06/06 13:19 Order name: NT PRO-BNP [facility] 06/06 13:19 Order name: PT-INR; Complete Time: 14:21 [facility] 06/06 13:19 Order name: Troponin (emerg Dept Use Only); Complete Time: 14:21 [facility] 06/06 13:19 Order name: Lipase; Complete Time: 14:21 [facility] 06/06 13:19 Order name: Hepatitis Panel [facility] 06/06 13:20 Order name: Basic Metabolic Panel; Complete Time: 14:21 [facility] 06/06 13:20 Order name: CBC with Automated Diff; Complete Time: 14:21 [facility] 06/06 13:20 Order name: Liver (Hepatic) Function; Complete Time: 14:21 [facility] 06/06 13:20 Order name: Magnesium; Complete Time: 14:21 [facility] 06/06 13:20 Order name: NT PRO-BNP; Complete Time: 14:21 [facility] 06/06 13:19 Order name: XRAY Chest (1 view) [facility] 06/06 13:19 Order name: EKG; Complete Time: 13:21 [facility] 06/06 13:19 Order name: Cardiac monitoring; Complete Time: 13:44 [facility] 06/06 13:19 Order name: EKG - Nurse/Tech; Complete Time: 14:58 [facility] 06/06 13:19 Order name: IV Saline Lock; Complete Time: 13:44 [facility] 06/06 13:19 Order name: Labs collected and sent; Complete Time: 13:44 [facility] 06/06 13:19 Order name: O2 Per Protocol; Complete Time: 13:28 [facility] 06/06 13:19 Order name: O2 Sat Monitoring; Complete Time: 13:27 [facility] EC:02 Rate is 77 beats/min. Rhythm is regular. QRS [place] is Normal. MO interval is normal. QRS jana interval is normal. QT interval is normal. No Q waves. T waves are Normal. No ST changes noted. Clinical impression: NSR w/ Non-specific ST/T Changes, LVH, and No evidence of ischemia. Interpreted by me. Reviewed by me. Administered Medications: 13:40 Drug: NS 0.9% 1000 ml Route: IV; Rate: 125 ml/hr; Site: right antecubital; bp 13:40 Drug: Norvasc (amlodipine) 10 mg Route: PO; bp 14:39 Follow up: Response: No adverse reaction bp 14:10 Drug: Hydrochlorothiazide 25 mg Route: PO; bp 15:05 Follow up: Response: No adverse reaction bp Disposition: 06/06/20 14:24 Discharged to Home. Impression: Essential (primary) hypertension. - Condition is Stable. - Discharge Instructions: Hypertension, Hypertension, [id number], How to Take Your Blood Pressure, [id number], Aspirin and Your Heart, Managing Your Hypertension. - Prescriptions for Norvasc 10 mg Oral Tablet - take 1 tablet by ORAL route once daily; 30 tablet. Potassium Chloride 20 meq Oral Packet - take 1 packet by ORAL route once daily 1 packet in 6 (six) ounces of water or juice; Take after meal; 30 packet. Hydrochlorothiazide 12.5 mg Oral Tablet - take 1 tablet by ORAL route once daily; 30 tablet. - Medication Reconciliation Form, Thank You Letter, Antibiotic Education, Prescription Opioid Use form. - Follow up: Private Physician; When: 2 - 3 days; Reason: Recheck today's complaints, Continuance of care, Re-evaluation by your physician. Follow up: Shaq Hansen; When: 2 - 3 days; Reason: Recheck today's complaints, Re-evaluation by your physician. Follow up: Morena Tony; When: 2 - 3 days; Reason: Recheck today's complaints, Re-evaluation by your physician. - Problem is new. - Symptoms have improved. Signatures: Dispatcher [employer] EDMS Cyril Maria MD MD cha Calderon, Audri, RICKEY RN aa5 Willie Vickers RN RN bp Corrections: (The following items were deleted from the chart) 15:10 14:24 06/06/2020 14:24 Discharged to Home. Impression: Essential (primary) bp hypertension. Condition is Stable. Discharge Instructions: Hypertension, Hypertension, [id number], How to Take Your Blood Pressure, [id number], Aspirin and Your Heart, Managing Your Hypertension. Prescriptions for Norvasc 10 mg Oral Tablet - take 1 tablet by ORAL route once daily; 30 tablet, Potassium Chloride 20 meq Oral Packet - take 1 packet by ORAL route once daily 1 packet in 6 (six) ounces of water or juice; Take after meal; 30 packet, Hydrochlorothiazide 12.5 mg Oral Tablet - take 1 tablet by ORAL route once daily; 30 tablet. and Forms are Medication Reconciliation Form, Thank You Letter, Antibiotic Education, Prescription Opioid Use. Follow up: Private Physician; When: 2 - 3 days; Reason: Recheck today's complaints, Continuance of care, Re-evaluation by your physician. Follow up: Shaq Hansen; When: 2 - 3 days; Reason: Recheck today's complaints, Re-evaluation by your physician. Follow up: Morena Tony; When: 2 - 3 days; Reason: Recheck today's complaints, Re-evaluation by your physician. Problem is new. Symptoms have improved. jana
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
--- NOTE | 2020-06-06 14:33 | RAD REPORT ---
EXAM DESCRIPTION: Manuel Single View06/06/2020 2:16 pm CLINICAL HISTORY: cough COMPARISON: none FINDINGS: The lungs appear clear of acute infiltrate. The heart is normal size IMPRESSION: No acute abnormalities displayed
[2020-06-06] MEDS ORDERED: hydroCHLOROthiazide 25 MG TAB ONE (15:06)
[2020-06-06 15:17] VITALS: BP 143/90; TEMP 98; O2SAT 99
--- NOTE | 2020-06-07 07:53 | EKG ---
Test Date: 2020-06-06 Test Time: 13:51:28 Wood Cabinetmaker: GORAN MEASUREMENT RESULTS: Intervals: Rate: 77 UT: 164 QRSD: 90 QT: 390 QTc: 441 [place]: P: 67 UT: 164 QRS: -3 T: 41 INTERPRETIVE STATEMENTS: Normal sinus rhythm Right atrial enlargement Borderline ECG No previous ECG available for comparison Electronically Signed On 06-07-20 07:52:03 CDT by Shaq Hansen
[2020-06-11 04:39] LABS: HBsAG Nonreactive (Nonreactive)
== END 2020-06-06 15:10 | disposition home or self-care (01) ==
LOC: ER 12:52
DX: I10 Essential (primary) hypertension (principal)
CPT/HCPCS: 36415; 71045; 80048; 80074; 80076; 83690; 83735; 83880; 84484; 85025; 85610; 93005; 99284; J7030

== ENCOUNTER 2020-08-18 13:06 | Emergency (ER) | payer SELFPAY ==
[2020-08-18 16:39] LABS: Urine Blood 2+ (Negative); Urine Glucose Negative (Negative); Urine Protein Negative (Negative); Urine pH 8.5 (5.0-7.0)
[2020-08-18 16:56] LABS: Absolute Lymphocytes (CBC) 1.9 K/uL (0.7-4.9); Basophils % 0.7 % (0-1.3); Hematocrit 38.9 % (39.6-49.0); Lymphocytes % 23.7 % (15.3-44.8); MPV 8.4 fL (7.6-11.3); RBC Red Blood Cell Count 4.42 M/uL (4.33-5.43)
[2020-08-18 17:12] LABS: Albumin 4.2 g/dL (3.4-5.0); Bilirubin Direct 0.2 mg/dL (0-0.2); Bilirubin Total 0.7 mg/dL (0.2-1.0)
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
--- NOTE | 2020-08-18 18:27 | ER ---
Nurse's Notes [facility] Name: Samuel Guzman Age: 55 yrs Sex: Male : 1965 Arrival Date: 08/18/2020 Time: 13:07 Bed 20 Private MD: Diagnosis: Hematuria, unspecified Presentation: 08/18 13:14 Chief complaint: Patient states: dark urine and possible "skin vs blood clots" in urine ss that began this morning. "Under my sack is kind of irritated too." Pt is concerned because his ex-spouse was diagnosed with hepatitis at the beginning of the year. Pt states he was seen in ER for similar complaints and was told his liver and urine are clear, but is wanting to be retested. Pt states he did not follow up with his doctor and is also out of his HTN medication. Coronavirus screen: Client denies travel out of the [place] in the last 14 days. Ebola Screen: Patient denies exposure to infectious person. Patient denies travel to an Ebola-affected area in the 21 days before illness onset. Initial Sepsis Screen: Does the patient meet any 2 criteria? No. Patient's initial sepsis screen is negative. Does the patient have a suspected source of infection? No. Patient's initial sepsis screen is negative. Risk Assessment: Do you want to hurt yourself or someone else? Patient reports no desire to harm self or others. Onset of symptoms is unknown. 13:14 Method Of Arrival: Ambulatory ss 13:14 Acuity: FRANCISCO 3 ss Historical: - Allergies: 13:19 No Known Allergies; ss - PMHx: 13:19 Hypertension; ss - PSHx: 13:19 None; ss - Immunization history:: Adult Immunizations up to date. - Social history:: Smoking status: Patient reports the use of cigarette tobacco products, smokes one-half pack cigarettes per day. Screenin:00 Abuse screen: Denies threats or abuse. Denies injuries from another. Nutritional ld1 screening: No deficits noted. Tuberculosis screening: No symptoms or risk factors identified. Fall Risk None identified. Assessment: 13:11 Reassessment: Called to triage. Unable to locate patient. ER registration staff reports ss that patient stepped outside to his vehicle to get his bottle of water. 16:00 General: Appears in no apparent distress. uncomfortable, Behavior is calm, cooperative, ld1 appropriate for age. Pain: Denies pain. Neuro: Level of Consciousness is awake, alert, obeys commands, Oriented to person, place, time, situation. 16:00 Cardiovascular: Capillary refill < 3 seconds Patient's skin is warm and dry. ld1 Respiratory: Airway is patent Respiratory effort is even, unlabored, Respiratory pattern is regular, symmetrical. GI: Abdomen is flat, non-distended. : Reports Bloot clots in urine. EENT: No signs and/or symptoms were reported regarding the EENT system. Derm: No signs and/or symptoms reported regarding the dermatologic system. Musculoskeletal: No signs and/or symptoms reported regarding the musculoskeletal system. 17:29 Reassessment: Patient appears in no apparent distress at this time. Patient is alert, ld1 oriented x 3, equal unlabored respirations, skin warm/dry/pink. 18:44 Reassessment: Patient appears in no apparent distress at this time. Patient is alert, ld1 oriented x 3, equal unlabored respirations, skin warm/dry/pink. Vital Signs: 13:14 Pulse 84; Resp 18; Temp 98.5; Pulse Ox 100% on R/A; Weight 89.81 kg; Height 5 ft. 11 ss in. (180.34 cm); Pain 0/10; 13:14 BP 144 / 94; ss 16:00 BP 136 / 88; Pulse 86; Resp 18; Pulse Ox 100% ; ld1 17:29 BP 134 / 82; Pulse 88; Resp 18; Pulse Ox 100% ; ld1 18:44 BP 130 / 77; Pulse 82; Resp 18; Pulse Ox 99% on R/A; ld1 13:14 Body Mass Index 27.62 (89.81 kg, 180.34 cm) ED Course: 13:07 Patient arrived in ED. as 13:19 Triage completed. ss 13:19 Arm band placed on right wrist. ss 16:00 Patient has correct armband on for positive identification. Bed in low position. Call ld1 light in reach. Side rails up X 1. Pulse ox on. NIBP on. Door closed. Noise minimized. Warm blanket given. 16:00 No provider procedures requiring assistance completed. Inserted saline lock: 20 gauge ld1 in right antecubital area, using aseptic technique. Blood collected. 16:27 Hadley Medina PA [facility]. jr8 16:27 William Brasher MD is Attending Physician. jr8 16:28 Reanna Garcia, RN is Primary Nurse. ld1 18:06 CT Abd/Pelvis - IV Contrast Only In Process Unspecified. EDMS 18:26 Hung Pena MD is Referral Physician. jr8 18:45 IV discontinued, intact, bleeding controlled, No redness/swelling at site. ld1 Administered Medications: No medications were administered Outcome: 18:26 Discharge ordered by . jr8 18:45 Discharged to home ambulatory. ld1 18:45 Condition: stable 18:45 Discharge instructions given to patient, Instructed on discharge instructions, follow up and referral plans. Demonstrated understanding of instructions, follow-up care. 18:45 Patient left the ED. ld1 Signatures: Dispatcher [employer] EDFL Geraldine Pacheco Shelby, RN RN Hadley Medina PA [place] jr Reanna Garcia, RN RN ld1
--- NOTE | 2020-08-18 18:28 | EDPHYS ---
Physician Documentation [facility] Name: Samuel Guzman Age: 55 yrs Sex: Male : 1965 Arrival Date: 08/18/2020 Time: 13:07 Bed 20 Private MD: ED Physician William Brasher HPI: 08/18 18:27 This 55 yrs old Black Male presents to ER via Ambulatory with complaints of Urinary jr8 Problem. 18:27 The patient presents with urinary symptoms, hematuria. Onset: The symptoms/episode jr8 began/occurred suddenly. Modifying factors: The symptoms are alleviated by nothing, the symptoms are aggravated by nothing. Associated signs and symptoms: The patient has no apparent associated signs or symptoms. Severity of symptoms: At their worst the symptoms were mild, in the emergency department the symptoms are unchanged. The patient has not experienced similar symptoms in the past. The patient has not recently seen a physician. 18:37 Patient with painless hematuria that came up. Denies discharge or any other complaints jr8 at this time . Historical: - Allergies: 13:19 No Known Allergies; ss - PMHx: 13:19 Hypertension; ss - PSHx: 13:19 None; ss - Immunization history:: Adult Immunizations up to date. - Social history:: Smoking status: Patient reports the use of cigarette tobacco products, smokes one-half pack cigarettes per day. ROS: 18:27 Eyes: Negative for injury, pain, redness, and discharge, ENT: Negative for injury, jr8 pain, and discharge, Neck: Negative for injury, pain, and swelling, Cardiovascular: Negative for chest pain, palpitations, and edema, Respiratory: Negative for shortness of breath, cough, wheezing, and pleuritic chest pain, Abdomen/GI: Negative for abdominal pain, nausea, vomiting, diarrhea, and constipation, Back: Negative for injury and pain, MS/Extremity: Negative for injury and deformity, Skin: Negative for injury, rash, and discoloration, Neuro: Negative for headache, weakness, numbness, tingling, and seizure. 18:27 : Positive for hematuria. Exam: 18:27 Constitutional: This is a well developed, well nourished patient who is awake, alert, jr8 and in no acute distress. Cardiovascular: Regular rate and rhythm with a normal S1 and S2. No gallops, murmurs, or rubs. Normal PMI, no JVD. No pulse deficits. Respiratory: Lungs have equal breath sounds bilaterally, clear to auscultation and percussion. No rales, rhonchi or wheezes noted. No increased work of breathing, no retractions or nasal flaring. Abdomen/GI: Soft, non-tender, with normal bowel sounds. No distension or tympany. No guarding or rebound. No evidence of tenderness throughout. Back: No spinal tenderness. No costovertebral tenderness. Full range of motion. Skin: Warm, dry with normal turgor. Normal color with no rashes, no lesions, and no evidence of cellulitis. MS/ Extremity: Pulses equal, no cyanosis. Neurovascular intact. Full, normal range of motion. Neuro: Awake and alert, GCS 15, oriented to person, place, time, and situation. Cranial nerves II-XII grossly intact. Motor strength 5/5 in all extremities. Sensory grossly intact. Cerebellar exam normal. Normal gait. Vital Signs: 13:14 Pulse 84; Resp 18; Temp 98.5; Pulse Ox 100% on R/A; Weight 89.81 kg; Height 5 ft. 11 ss in. (180.34 cm); Pain 0/10; 13:14 BP 144 / 94; ss 16:00 BP 136 / 88; Pulse 86; Resp 18; Pulse Ox 100% ; ld1 17:29 BP 134 / 82; Pulse 88; Resp 18; Pulse Ox 100% ; ld1 18:44 BP 130 / 77; Pulse 82; Resp 18; Pulse Ox 99% on R/A; ld1 13:14 Body Mass Index 27.62 (89.81 kg, 180.34 cm) MDM: 16:28 Patient medically screened. jr8 18:25 Data reviewed: vital signs, nurses notes, lab test result(s), radiologic studies, CT jr8 scan, and as a result, I will discharge patient. Data interpreted: Pulse oximetry: on room air is 100 %. Interpretation: normal. Counseling: I had a detailed discussion with the patient and/or guardian regarding: the historical points, exam findings, and any diagnostic results supporting the discharge/admit diagnosis, lab results, radiology results, the need for outpatient follow up, a urologist, to return to the emergency department if symptoms worsen or persist or if there are any questions or concerns that arise at home. ED course: Patient without gross hematuria. CT without suspicious findings. Otherwise stable and without pain. Will refer to urology. In the meantime return precautions have been given . 08/18 16:28 Order name: CBC with Diff; Complete Time: 17:35 jr8 08/18 16:28 Order name: Basic Metabolic Panel; Complete Time: 17:35 jr8 08/18 16:28 Order name: Urine Dipstick-Ancillary (obtain specimen); Complete Time: 16:43 jr8 08/18 16:28 Order name: LFT's; Complete Time: 17:35 jr8 08/18 16:39 Order name: Urine Dipstick-Ancillary; Complete Time: 17:35 EDHI 08/18 17:42 Order name: CT Abd/Pelvis - IV Contrast Only; Complete Time: 18:24 jr8 08/18 16:28 Order name: IV; Complete Time: 16:43 jr8 Administered Medications: No medications were administered Disposition: 08/19 08:43 Co-signature as Attending Physician, William Brasher MD I agree with the assessment and kdr plan of care. Disposition Summary: 08/18/20 18:26 Discharge Ordered Location: Home jr8 Problem: new jr8 Symptoms: have improved jr8 Condition: Stable jr8 Diagnosis - Hematuria, unspecified jr8 Followup: jr8 - With: Hung Pena MD - When: 2 - 3 days - Reason: Recheck today's complaints, Continuance of care, Re-evaluation by your physician Discharge Instructions: - Discharge Summary Sheet jr8 - Hematuria, Adult jr8 Forms: - Medication Reconciliation Form jr8 - Thank You Letter jr8 - Antibiotic Education jr8 - Prescription Opioid Use jr8 Signatures: Dispatcher [employer] [facility] William Brasher MD MD kdr Smirch, Shelby, RN RN Hadley Garza PA PA jr8
[2020-08-18 19:10] VITALS: TEMP 98.5
[2020-08-18 19:16] VITALS: BP 130/77; O2SAT 99
== END 2020-08-18 18:45 | disposition home or self-care (01) ==
LOC: ER 13:06
DX: R31.9 Hematuria, unspecified (principal); I10 Essential (primary) hypertension; F17.210 Nicotine dependence, cigarettes, uncomplicated
CPT/HCPCS: 36415; 74177; 80048; 80076; 81003; 85025; Q9967

== ENCOUNTER 2020-08-21 07:58 | Inpatient (IN) | payer SELFPAY ==
[2020-08-21] MEDS ORDERED: SMZ./TMP. 800/160 MG TABLET ONE (08:43)
[2020-08-21] MEDS ORDERED: CEFTRIAXONE 1000 MG/VIAL ONE (08:49)
[2020-08-21 09:09] LABS: Urine Appearance CLOUDY (Clear); Urine Blood 3+ (Negative); Urine Color Red (Yellow); Urine Glucose NEGATIVE (Negative); Urine Protein 3+ (Negative)
[2020-08-21] MEDS ORDERED: NA CHLORIDE 0.9% 50 ML ONE (09:09)
[2020-08-21] MEDS ORDERED: CEFTRIAXONE/SWI 1gm 1 GM/10 ML SYR ONE (09:09)
[2020-08-21 09:13] LABS: Absolute Lymphocytes (CBC) 1.4 K/uL (0.7-4.9); Basophils % 0.5 % (0-1.3); Hematocrit 32.6 % (39.6-49.0); Lymphocytes % 17.9 % (15.3-44.8); MPV 7.9 fL (7.6-11.3); RBC Red Blood Cell Count 3.71 M/uL (4.33-5.43)
[2020-08-21 09:25] LABS: BUN Blood Urea Nitrogen 10 mg/dL (7-18); Bicarbonate 29 mmol/L (21-32); Glucose Level 95 mg/dL (74-106); Potassium 4.1 mmol/L (3.5-5.1); Sodium Level 142 mmol/L (136-145)
[2020-08-21 09:35] LABS: Urine Bilirubin NEGATIVE (Negative); Urine Microscopic Reflex ORDER UMIC
[2020-08-21 09:37] LABS: Urine Amorphous Sediment 2+ /HPF (NONE SEEN); Urine Bacteria 20-50 /HPF (NONE SEEN); Urine RBC TNTC /HPF (NONE SEEN)
[2020-08-21 10:18] LABS: Blood Morphology Comment NOT SEEN (NOT SEEN); Platelet Estimate ADEQ
[2020-08-21] MEDS ORDERED: NA CHLORIDE 0.9% 1,000 ML ONE (10:32)
--- NOTE | 2020-08-21 11:24 | ER ---
Nurse's Notes [facility] Name: Samuel Guzman Age: 55 yrs Sex: Male : 1965 Arrival Date: 08/21/2020 Time: 08:01 Bed 7 Private MD: Diagnosis: Acute cystitis with hematuria;Gross hematuria Presentation: 08/21 08:07 Chief complaint: Patient states: Dysuria with hematuria for 4 days. No fever, no N/V/D. ll1 Coronavirus screen: Client denies travel out of the [place] in the last 14 days. At this time, the client does not indicate any symptoms associated with coronavirus-19. Ebola Screen: Patient denies travel to an Ebola-affected area in the 21 days before illness onset. Initial Sepsis Screen: Does the patient meet any 2 criteria? No. Patient's initial sepsis screen is negative. Does the patient have a suspected source of infection? Yes: Dysuria/Frequency/Urgency/UTI. Risk Assessment: Do you want to hurt yourself or someone else? Patient reports no desire to harm self or others. Onset of symptoms was August 18, 2020. 08:07 Method Of Arrival: Ambulatory ll1 08:07 Acuity: FRANCISCO 3 ll1 Historical: - Allergies: 08:06 No Known Allergies; ll1 - PMHx: 08:06 Hypertension; ll1 - Immunization history:: Client reports receiving the 2nd dose of the Covid vaccine, Flu vaccine is up to date. - Social history:: Smoking status: Patient reports the use of cigarette tobacco products, smokes one-half pack cigarettes per day. Screenin:09 Abuse screen: Denies threats or abuse. Nutritional screening: No deficits noted. ll1 Tuberculosis screening: No symptoms or risk factors identified. Fall Risk Total Fernández Fall Scale indicates No Risk (0-24 pts). Assessment: 08:15 General: Appears in no apparent distress. comfortable, Behavior is calm, cooperative, jd3 appropriate for age. Pain: Complains of pain in suprapubic area Quality of pain is described as pressure. Neuro: Level of Consciousness is awake, alert, obeys commands, Oriented to person, place, time, situation. Cardiovascular: Denies chest pain, Capillary refill < 3 seconds Patient's skin is warm and dry. Respiratory: Airway is patent Respiratory effort is even, unlabored, Respiratory pattern is regular, symmetrical, Denies cough, shortness of breath. GI: No signs and/or symptoms were reported involving the gastrointestinal system. : Reports burning with urination, blood in urine. EENT: No signs and/or symptoms were reported regarding the EENT system. Derm: Skin is intact, Skin is dry, Skin is normal, Skin temperature is warm. Musculoskeletal: Circulation, motion, and sensation intact. Range of motion: intact in all extremities. 09:26 Reassessment: Patient appears in no apparent distress at this time. No changes from jd3 previously documented assessment. Patient and/or family updated on plan of care and expected duration. Pain level reassessed. Patient is alert, oriented x 3, equal unlabored respirations, skin warm/dry/pink. 10:49 Reassessment: Patient appears in no apparent distress at this time. No changes from jd3 previously documented assessment. Patient and/or family updated on plan of care and expected duration. Pain level reassessed. Patient is alert, oriented x 3, equal unlabored respirations, skin warm/dry/pink. 11:45 Reassessment: Patient appears in no apparent distress at this time. Patient and/or jd3 family updated on plan of care and expected duration. Pain level reassessed. Patient is alert, oriented x 3, equal unlabored respirations, skin warm/dry/pink. 13:45 Reassessment: Patient appears in no apparent distress at this time. No changes from jd3 previously documented assessment. Patient and/or family updated on plan of care and expected duration. Pain level reassessed. Patient is alert, oriented x 3, equal unlabored respirations, skin warm/dry/pink. 14:12 Reassessment: Patient appears in no apparent distress at this time. Patient and/or jd3 family updated on plan of care and expected duration. Pain level reassessed. Patient is alert, oriented x 3, equal unlabored respirations, skin warm/dry/pink. report given to Blossom LANG. Vital Signs: 08:07 BP 145 / 100; Pulse 70; Resp 17; Temp 98.3; Pulse Ox 99% ; Weight 88.45 kg; Height 5 ll1 ft. 11 in. (180.34 cm); Pain 0/10; 09:24 BP 147 / 87; Pulse 71; Resp 16 S; Pulse Ox 98% on R/A; jd3 10:49 BP 145 / 70; Pulse 80; Resp 16 S; Pulse Ox 100% on R/A; jd3 08:07 Body Mass Index 27.20 (88.45 kg, 180.34 cm) ll1 ED Course: 08:01 Patient arrived in ED. mr 08:02 Reji Mahoney RN is Primary Nurse. jd3 08:02 William Brasher MD is Attending Physician. kdr 08:06 Arm band placed on Patient placed in an exam room, on a stretcher. ll1 08:08 Triage completed. ll1 08:09 Patient has correct armband on for positive identification. Bed in low position. Call ll1 light in reach. Side rails up X 1. 08:59 Inserted saline lock: 20 gauge in right antecubital area, using aseptic technique. jd3 Blood collected. 11:23 Radha Araiza MD is Hospitalizing Provider. kdr 14:13 No provider procedures requiring assistance completed. Patient admitted, IV remains in jd3 place. Administered Medications: 08:26 Drug: Bactrim (trimethoprim-sulfamethoxazole) (160 mg-800 mg (DS) 1 tablet Route: PO; jd3 09:20 Follow up: Response: No adverse reaction jd3 08:46 Not Given (Physician Discretion): Rocephin (cefTRIAXone) 1 grams IM once jd3 08:59 Drug: Rocephin (cefTRIAXone) 1 grams Route: IV; Rate: calculated rate; Site: right jd3 antecubital; 09:30 Follow up: Response: No adverse reaction; IV Status: Completed infusion jd3 10:12 Drug: NS 0.9% 1000 ml Route: IV; Rate: 1 bolus; Site: right antecubital; jd3 11:10 Follow up: Response: No adverse reaction; IV Status: Completed infusion; IV Intake: jd3 1000ml Intake: 11:10 IV: 1000ml; Total: 1000ml. jd3 Outcome: 11:23 Decision to Hospitalize by Provider. kdr 14:13 Admitted to Med/surg accompanied by nurse, via wheelchair, room 207, with chart, Report jd3 called to Blossom LANG 14:13 Condition: stable 14:13 Instructed on the need for admit, Demonstrated understanding of instructions. 14:15 Patient left the ED. jd3 Signatures: William Brasher MD MD kdr Cha Gerardo mr Maru, Reji, RN RN jd3 Ian Lara RN RN ll1
--- NOTE | 2020-08-21 11:24 | EDPHYS ---
Physician Documentation [facility] Name: Samuel Guzman Age: 55 yrs Sex: Male : 1965 Arrival Date: 08/21/2020 Time: 08:01 Bed 7 Private MD: ED Physician William Brasher HPI: 08/21 08:51 This 55 yrs old Black Male presents to ER via Ambulatory with complaints of Urinary kdr Problem. 08:51 The patient presents with urinary symptoms, dysuria, hematuria. Onset: The kdr symptoms/episode began/occurred gradually, 1 week(s) ago. Modifying factors: The symptoms are alleviated by nothing, the symptoms are aggravated by urinating. Associated signs and symptoms: Pertinent positives: dysuria, hematuria. Severity of symptoms: At their worst the symptoms were mild, moderate, just prior to arrival, in the emergency department the symptoms are unchanged. The patient has not experienced similar symptoms in the past. The patient has been recently seen at the [facility] Emergency Department, last week. Historical: - Allergies: 08:06 No Known Allergies; ll1 - PMHx: 08:06 Hypertension; ll1 - Immunization history:: Client reports receiving the 2nd dose of the Covid vaccine, Flu vaccine is up to date. - Social history:: Smoking status: Patient reports the use of cigarette tobacco products, smokes one-half pack cigarettes per day. ROS: 08:51 Constitutional: Negative for fever, chills, and weight loss, Eyes: Negative for injury, kdr pain, redness, and discharge, Neck: Negative for injury, pain, and swelling, Cardiovascular: Negative for chest pain, palpitations, and edema, Respiratory: Negative for shortness of breath, cough, wheezing, and pleuritic chest pain, Abdomen/GI: Negative for abdominal pain, nausea, vomiting, diarrhea, and constipation, Back: Negative for injury and pain, MS/Extremity: Negative for injury and deformity, Skin: Negative for injury, rash, and discoloration, Neuro: Negative for headache, weakness, numbness, tingling, and seizure activity. Psych: Negative for depression, anxiety, suicide ideation, homicidal ideation, and hallucinations, Allergy/Immunology: Negative for hives, rash, and allergies, Endocrine: Negative for neck swelling, polydipsia, polyuria, polyphagia, and marked weight changes, Hematologic/Lymphatic: Negative for swollen nodes, abnormal bleeding, and unusual bruising. 08:51 : Positive for urinary symptoms, hematuria, burning with urination, Negative for bladder incontinence, foul smelling urine, penile discharge, penile pain. Exam: 08:51 Constitutional: This is a well developed, well nourished patient who is awake, alert, kdr and in no acute distress. 08:51 Head/Face: Normocephalic, atraumatic. Eyes: Pupils equal round and reactive to light, extra-ocular motions intact. Lids and lashes normal. Conjunctiva and sclera are non-icteric and not injected. Cornea within normal limits. Periorbital areas with no swelling, redness, or edema. Neck: Trachea midline, no thyromegaly or masses palpated, and no cervical lymphadenopathy. Supple, full range of motion without nuchal rigidity, or vertebral point tenderness. No Meningismus. Chest/axilla: Normal chest wall appearance and motion. Nontender with no deformity. No lesions are appreciated. Cardiovascular: Regular rate and rhythm with a normal S1 and S2. No gallops, murmurs, or rubs. Normal PMI, no JVD. No pulse deficits. Respiratory: Lungs have equal breath sounds bilaterally, clear to auscultation and percussion. No rales, rhonchi or wheezes noted. No increased work of breathing, no retractions or nasal flaring. Abdomen/GI: Soft, non-tender, with normal bowel sounds. No distension or tympany. No guarding or rebound. No evidence of tenderness throughout. Back: No spinal tenderness. No costovertebral tenderness. Full range of motion. Skin: Warm, dry with normal turgor. Normal color with no rashes, no lesions, and no evidence of cellulitis. MS/ Extremity: Pulses equal, no cyanosis. Neurovascular intact. Full, normal range of motion. Neuro: Awake and alert, GCS 15, oriented to person, place, time, and situation. Cranial nerves II-XII grossly intact. Motor strength 5/5 in all extremities. Sensory grossly intact. Cerebellar exam normal. Normal gait. Psych: Awake, alert, with orientation to person, place and time. Behavior, mood, and affect are within normal limits. Vital Signs: 08:07 BP 145 / 100; Pulse 70; Resp 17; Temp 98.3; Pulse Ox 99% ; Weight 88.45 kg; Height 5 ll1 ft. 11 in. (180.34 cm); Pain 0/10; 09:24 BP 147 / 87; Pulse 71; Resp 16 S; Pulse Ox 98% on R/A; jd3 10:49 BP 145 / 70; Pulse 80; Resp 16 S; Pulse Ox 100% on R/A; jd3 08:07 Body Mass Index 27.20 (88.45 kg, 180.34 cm) ll1 MDM: 08:51 Data reviewed: vital signs, nurses notes, lab test result(s). Counseling: I had a kdr detailed discussion with the patient and/or guardian regarding: the historical points, exam findings, and any diagnostic results supporting the discharge/admit diagnosis, lab results, the need for outpatient follow up. 11:23 Patient medically screened. kdr 11:46 Physician consultation: Hung Pena MD regarding consult, patient's condition, and kdr will see patient in inpatient room, later today. 08/21 08:14 Order name: Urinalysis; Complete Time: 09:55 kdr 08/21 08:14 Order name: Urine Culture kdr 08/21 08:46 Order name: CBC with Manual Differential; Complete Time: 10:33 jd3 08/21 08:46 Order name: Chem 7; Complete Time: 09:55 jd3 08/21 09:36 Order name: Urine Microscopic Only; Complete Time: 09:55 EDMS 08/21 10:46 Order name: Hemoglobin; Complete Time: 11:20 kdr 08/21 13:27 Order name: CBC with Automated Diff EDMS 08/21 13:27 Order name: CBC with Automated Diff EDMS 08/21 13:27 Order name: Comprehensive Metabolic Panel EDCT 08/21 13:27 Order name: Comprehensive Metabolic Panel EDCT 08/21 08:14 Order name: Urine Dipstick-Ancillary (obtain specimen); Complete Time: 09:14 kdr 08/21 13:27 Order name: Heart Healthy EDMS Administered Medications: 08:26 Drug: Bactrim (trimethoprim-sulfamethoxazole) (160 mg-800 mg (DS) 1 tablet Route: PO; jd3 09:20 Follow up: Response: No adverse reaction jd3 08:46 Not Given (Physician Discretion): Rocephin (cefTRIAXone) 1 grams IM once jd3 08:59 Drug: Rocephin (cefTRIAXone) 1 grams Route: IV; Rate: calculated rate; Site: right jd3 antecubital; 09:30 Follow up: Response: No adverse reaction; IV Status: Completed infusion jd3 10:12 Drug: NS 0.9% 1000 ml Route: IV; Rate: 1 bolus; Site: right antecubital; jd3 11:10 Follow up: Response: No adverse reaction; IV Status: Completed infusion; IV Intake: jd3 1000ml Disposition Summary: 08/21/20 11:23 Hospitalization Ordered Hospitalization Status: Inpatient Admission kdr Provider: Radha Araiza Location: Telemetry/MedSurg (Inpatient) kdr Condition: Fair kdr Problem: an ongoing problem kdr Symptoms: are unchanged kdr Bed/Room Type: Standard kdr Room Assignment: [facility](08/21/20 13:35) eb Diagnosis - Acute cystitis with hematuria kdr - Gross hematuria kdr Forms: - Medication Reconciliation Form kdr - SBAR form kdr Signatures: Dispatcher [employer] EDWilliam Jimenez MD MD kdr Reji Mahoney RN RN Milvia Hill Lynsay, RN RN ll1 Corrections: (The following items were deleted from the chart) 13:35 11:23 kdr eb
[2020-08-21] MEDS ORDERED: MORPHINE 2 MG/ML SYR IV PRN (13:24)
[2020-08-21] MEDS ORDERED: ACETAMINOPHEN 500 MG TAB PO PRN (13:24)
[2020-08-21] MEDS ORDERED: ONDANSETRON 4 MG/2 ML VIAL IV PRN (13:24)
[2020-08-21 14:31] VITALS: BMI 26.2
[2020-08-21] MEDS: NA CHLORIDE 0.9% 1,000 ML IV SCH (14:37)
[2020-08-21] MEDS: CEFTRIAXONE/SWI 1gm 1 GM/10 ML SYR IVP SCH (20:58)
[2020-08-21] MEDS ORDERED: CEFAZOLIN/SWI 1gm 1 GM/10 ML SYR IVP SCH (21:00)
[2020-08-21 23:46] VITALS: O2SAT 98
[2020-08-22] MEDS: NA CHLORIDE 0.9% 1,000 ML IV SCH (04:51)
[2020-08-22 08:34] VITALS: BP 132/97; TEMP 97.8
[2020-08-22] MEDS: CEFTRIAXONE/SWI 1gm 1 GM/10 ML SYR IVP SCH (08:34)
--- NOTE | 2020-08-22 10:44 | P.HP ---
Certification for Inpatient Patient admitted to: Observation With expected LOS: <2 Midnights Patient will require the following post-hospital care: None Practitioner: I am a practitioner with admitting privileges, knowledge of patient current condition, hospital course, and medical plan of care. Services: Services provided to patient in accordance with Admission requirements found in Title 42 Section 412.3 of the Code of Federal Regulations Patient History Date of Service: 08/21/20 Reason for admission: DYSURIA/HEMATURIA History of Present Illness: PATIENT IS A 55-YEAR-OLD GENTLEMAN CAME TO THE HOSPITAL A COUPLE OF DAYS AGO WITH HEMATURIA. HE STATED THAT HE WAS HAVING DARK URINE. PATIENT HAD A A DIVERTICULUM NOTED IN THE BLADDER. NO OTHER SIGNIFICANT ABNORMALITIES. PATIENT WAS DISCHARGED HOME IN ADVICE TO FOLLOW WITH HER UROLOGY. HE STATES THAT HE WAS HAVING SOME BRIGHT RED BLOOD IN HIS URINE. WHEN HE GOT TO THE EMERGENCY ROOM HE WAS CONTINUING TO HAVE A BROWNISH COLORED URINE. PATIENT REFUSING TO GET REPEAT LABS AT THIS TIME. WILL REPEAT HIM IN THE MORNING. CHECK A CPK. CHECK LIVER FUNCTION TESTING WELL. PATIENT UA WAS CONSISTENT WITH A UTI. WILL START HIM ON ANTIBIOTICS WELL. HE DOES NEED FURTHER UROLOGY WORKUP. ANTICIPATE DISCHARGE TOMORROW. NO EVIDENCE OF GROSS HEMATURIA AT THIS TIME. WILL CONTINUE TO MONITOR. Allergies No Known Allergies Allergy (Unverified 08/21/20 14:32) Home Medications: NK [No Home Meds] 08/21/20 - Past Medical/Surgical History Has patient received pneumonia vaccine in the past: No Diabetic: No -: Hypertension - Family History Father Family History: Reviewed- Non-Contributory - Social History Smoking Status: Current every day smoker Alcohol use: No CD- Drugs: No Caffeine use: No Place of Residence: Home Review of Systems 10-point ROS is otherwise unremarkable Physical Examination - Vital Signs Temperature: 97.8 F Blood Pressure: 132/97 Pulse: 61 Respirations: 17 Pulse Ox (%): 100 - Physical Exam General: Alert, In no apparent distress, Oriented x3 HEENT: Atraumatic, PERRLA, Mucous membr. moist/pink, EOMI, Sclerae nonicteric Neck: Supple, 2+ carotid pulse no bruit, No LAD, Without JVD or thyroid abnormality Respiratory: Clear to auscultation bilaterally, Normal air movement Cardiovascular: Regular rate/rhythm, Normal S1 S2 Gastrointestinal: Normal bowel sounds, Soft and benign, Non-distended, No tenderness Musculoskeletal: No clubbing, No swelling, No tenderness Integumentary: No rashes Neurological: Normal gait, Normal speech, Normal strength at 5/5 x4 extr, Normal tone, Sensation intact, Cranial nerves 3-12 intact, Normal affect Lymphatics: No axilla or inguinal lymphadenopathy - Studies Laboratory Data (last 24 hrs) 08/21/20 10:57: Hgb 10.7 L Assessment & Plan - Problems (Diagnosis) (1) Hematuria Current Visit: Yes Status: Acute (2) Cystitis Current Visit: Yes Status: Acute - Plan 1. Continue with IV hydration 2. Continue with IV antibiotics 3. Continue with pain control 4. Diet as tolerated 5. Outpatient Urology consultation 6. Repeat labs including LFTs and CPK level 7. GI and DVT prophylaxis Discharge Plan: Home Plan to discharge in: 24 Hours - Advance Directives Does patient have a Living Will: No Does patient have a Durable POA for Healthcare: No Critical Care: No Time Spent Managing PTS Care (In Minutes): 45
--- NOTE | 2020-08-23 01:42 | P.DS ---
Discharge Date: 08/22/20 Disposition: ROUTINE DISCHARGE Discharge Condition: GOOD Reason for Admission: DYSURIA/HEMATURIA - Problems (1) Hematuria Status: Acute (2) Cystitis Status: Acute Brief History of Present Illness: PATIENT IS A 55-YEAR-OLD GENTLEMAN CAME TO THE HOSPITAL A COUPLE OF DAYS AGO WITH HEMATURIA. HE STATED THAT HE WAS HAVING DARK URINE. PATIENT HAD A A DIVERTICULUM NOTED IN THE BLADDER. NO OTHER SIGNIFICANT ABNORMALITIES. PATIENT WAS DISCHARGED HOME IN ADVICE TO FOLLOW WITH HER UROLOGY. HE STATES THAT HE WAS HAVING SOME BRIGHT RED BLOOD IN HIS URINE. WHEN HE GOT TO THE EMERGENCY ROOM HE WAS CONTINUING TO HAVE A BROWNISH COLORED URINE. PATIENT REFUSING TO GET REPEAT LABS AT THIS TIME. WILL REPEAT HIM IN THE MORNING. CHECK A CPK. CHECK LIVER FUNCTION TESTING WELL. PATIENT UA WAS CONSISTENT WITH A UTI. WILL START HIM ON ANTIBIOTICS WELL. HE DOES NEED FURTHER UROLOGY WORKUP. ANTICIPATE DISCHARGE TOMORROW. NO EVIDENCE OF GROSS HEMATURIA AT THIS TIME. WILL CONTINUE TO MONITOR. Hospital Course: Patient is currently doing well with no new complaints. Patient no longer having any hematuria. Patient states he is feeling back to his normal self. Patient does not want any further workup and does not want any labs performed. Will discharge him home with antibiotics and blood pressure medication. Vital Signs/Physical Exam: Temp Pulse Resp BP Pulse Ox 97.8 F 61 17 132/97 H 100 08/22/20 10:44 08/22/20 10:44 08/22/20 10:44 08/22/20 10:44 08/22/20 10:44 General: Alert, In no apparent distress, Oriented x3 Laboratory Data at Discharge: WBC Cancelled 08/22/20 05:00 Hgb Cancelled 08/22/20 05:00 Hct Cancelled 08/22/20 05:00 Plt Count Cancelled 08/22/20 05:00 Sodium Cancelled 08/22/20 05:00 Potassium Cancelled 08/22/20 05:00 BUN Cancelled 08/22/20 05:00 Creatinine Cancelled 08/22/20 05:00 Glucose Cancelled 08/22/20 05:00 Total Bilirubin Cancelled 08/22/20 05:00 AST Cancelled 08/22/20 05:00 ALT Cancelled 08/22/20 05:00 Alkaline Phosphatase Cancelled 08/22/20 05:00 Home Medications: Cefdinir [Omnicef] 300 mg PO BID #14 capsule 08/22/20 Metoprolol Tartrate [Lopressor] 50 mg PO BID 1 Days #60 tab 08/22/20 New Medications: Metoprolol Tartrate [Lopressor] 50 mg PO BID 1 Days #60 tab Cefdinir [Omnicef] 300 mg PO BID #14 capsule Physician Discharge Instructions: OK TO DC IV AND DC HOME FOLLOW-UP WITH PCP IN 1-2 WEEKS RETURN TO THE ER IF SYMPTOMS WORSENS CALL ME AT [phone] IF ANY QUESTIONS REGARDING HOSPITAL STAY FOLLOW-UP WITH UROLOGY IN 1-2 WEEKS Diet: AHA Activity: Fall precautions Followup: NONE,NONE [Primary Care Provider] - Time spent managing pt's care (in minutes): 35
== END 2020-08-22 12:22 | disposition home or self-care (01) | DRG 690 ==
LOC: ER 07:58 → ERHOLD 13:24 → 2ND 14:14 → OBSVTOIN 08-22 10:49
PROVIDERS: ADMIT Hospitalist; ATTEND Hospitalist
DX: N30.01 Acute cystitis with hematuria (principal); I10 Essential (primary) hypertension; N32.3 Diverticulum of bladder; F17.200 Nicotine dependence, unspecified, uncomplicated
CPT/HCPCS: 36415; 80048; 81003; 81015; 85018; 85025; 87086; 87088; 96361; 96365; 99285; G0378; J0690; J0696; J7030

== ENCOUNTER 2021-03-27 07:43 | Emergency (ER) | payer SELFPAY ==
[2021-03-27 08:47] LABS: Urine Blood Negative (Negative); Urine Glucose Negative (Negative); Urine Protein Negative (Negative); Urine pH 7.5 (5.0-7.0)
--- NOTE | 2021-03-27 09:02 | RAD REPORT ---
EXAM DESCRIPTION: CTAbdomen Pelvis W Contrast - 03/27/2021 8:52 am CLINICAL HISTORY: Abdominal pain. Hematuria;Flank pain COMPARISON: Abdomen Pelvis W Contrast dated 08/18/2020 TECHNIQUE: Biphasic CT imaging of the abdomen and pelvis was performed with 100 ml non-ionic IV cont rast. All CT scans are performed using dose optimization technique as appropriate and may include automated exposure control or mA/KV adjustment according to patient size. FINDINGS: The lung bases are clear. The liver, spleen, pancreas, adrenal glands and kidneys are within normal limits. No bowel obstruction, free air, free fluid or abscess. Significant stool is retained throughout the c olon. The appendix is not identified as a discrete structure, however, no secondary findings of appen dicitis are identified. No evidence of significant lymphadenopathy. No suspicious bony findings. Metallic foreign body anterior to the right inferior SI joint. IMPRESSION: No acute intra-abdominal or pelvic finding.
[2021-03-27 09:15] LABS: Absolute Lymphocytes (CBC) 1.8 K/uL (0.7-4.9); Hematocrit 39.3 % (39.6-49.0); MPV 8.3 fL (7.6-11.3); RBC Red Blood Cell Count 4.49 M/uL (4.33-5.43)
[2021-03-27 09:30] LABS: ALT/SGPT 43 U/L (12-78); AST/SGOT 58 U/L (15-37); Albumin 3.7 g/dL (3.4-5.0); Alkaline Phosphatase 70 U/L (45-117); BUN Blood Urea Nitrogen 12 mg/dL (7-18); Bicarbonate 26 mmol/L (21-32); Bilirubin Direct 0.2 mg/dL (0-0.2); Bilirubin Total 0.6 mg/dL (0.2-1.0); Glucose Level 90 mg/dL (74-106); Lipase 100 U/L (73-393); Protein, Total 7.9 g/dL (6.4-8.2)
[2021-03-27 09:39] LABS: Urine Bacteria <20 /HPF (NONE SEEN); Urine RBC NONE SEEN /HPF (NONE SEEN)
[2021-03-27] MEDS ORDERED: AZITHROMYCIN 500 MG INJ IVPB ONE (10:10)
[2021-03-27] MEDS ORDERED: NA CHLORIDE 0.9% 50 ML ONE (10:10)
[2021-03-27] MEDS ORDERED: NA CHLORIDE 0.9% 100 ML IV ONE (10:10)
[2021-03-27] MEDS ORDERED: CEFTRIAXONE 1000 MG/VIAL ONE (10:10)
--- NOTE | 2021-03-27 10:11 | ER ---
Nurse's Notes [facility] Name: Samuel Guzman Age: 56 yrs Sex: Male : 1965 Arrival Date: 03/27/2021 Time: 07:45 Bed 7 Private MD: Diagnosis: Nonspecific urethritis Presentation: 03/27 07:54 Chief complaint: Patient states: BLOOD FROM URETHRAL MEATUS INTERMITTENT x3 DAYS, bp STARTED POST-COITAL. NOW WITH LEFT FLANK PAIN AND YELLOW DISCHARGE. Coronavirus screen: At this time, the client does not indicate any symptoms associated with coronavirus-19. Ebola Screen: No symptoms or risks identified at this time. Initial Sepsis Screen: Does the patient meet any 2 criteria? No. Patient's initial sepsis screen is negative. Does the patient have a suspected source of infection? No. Patient's initial sepsis screen is negative. Risk Assessment: Do you want to hurt yourself or someone else? Patient reports no desire to harm self or others. Onset of symptoms is unknown. 07:54 Method Of Arrival: Ambulatory bp 07:54 Acuity: FRANCISCO 3 bp Triage Assessment: 07:55 General: Appears in no apparent distress. uncomfortable, Behavior is cooperative, bp appropriate for age, anxious. Pain: Complains of pain in left flank. EENT: No deficits noted. Neuro: Level of Consciousness is awake, alert, obeys commands, Oriented to Appropriate for age. Cardiovascular: No deficits noted. Respiratory: No deficits noted. GI: No signs and/or symptoms were reported involving the gastrointestinal system. : Reports discharge, from penis that is yellow, BLEEDING FROM MEATUS. Derm: No deficits noted. Musculoskeletal: No deficits noted. Historical: - Allergies: 07:55 No Known Allergies; bp - Home Meds: 07:55 None [Active]; bp - PMHx: 07:55 Hypertension; bp - Immunization history:: Adult Immunizations up to date. - Social history:: Smoking status: unknown. Screenin:09 Abuse screen: Denies threats or abuse. Nutritional screening: No deficits noted. ke1 Tuberculosis screening: No symptoms or risk factors identified. Fall Risk None identified. Assessment: 08:00 General: SEE TRIAGE NOTE. bp 09:00 Reassessment: No changes from previously documented assessment. Patient and/or family bp updated on plan of care and expected duration. Pain level reassessed. 10:49 Reassessment: PT D/C HOME AMBULATORY, DX WITH URETHRITIS. bp Vital Signs: 07:54 BP 171 / 101; Pulse 87; Resp 12; Temp 98; Pulse Ox 97% ; Weight 91.63 kg; Height 5 ft. bp 11 in. (180.34 cm); 09:32 BP 147 / 95; Pulse 66; Resp 17 S; Pulse Ox 99% on R/A; jd3 10:50 BP 135 / 85; Pulse 65; Resp 17; Pulse Ox 98% ; bp 07:54 Body Mass Index 28.17 (91.63 kg, 180.34 cm) bp ED Course: 07:45 Patient arrived in ED. as 07:50 Willie Vickers, RICKEY is Primary Nurse. bp 07:55 Triage completed. bp 07:57 Franc Wyatt, PRAVEEN is PHCP. pm1 07:57 Luis Bullard MD is Attending Physician. pm1 07:59 Arm band placed on. bp 08:45 Inserted saline lock: 20 gauge in right antecubital area, using aseptic technique. bp Blood collected. 08:52 CT Abd/Pelvis - IV Contrast Only In Process Unspecified. EDMS 09:10 Patient has correct armband on for positive identification. Bed in low position. Call ke1 light in reach. 10:23 Basic Metabolic Panel Sent. bp 10:51 No provider procedures requiring assistance completed. IV discontinued, intact, bp bleeding controlled, No redness/swelling at site. Pressure dressing applied. Administered Medications: 10:10 Drug: Rocephin - (cefTRIAXone) 1 grams Route: IVPB; Infused Over: 30 mins; Site: right bp antecubital; 10:22 Follow up: IV Status: Completed infusion; IV Intake: 50ml bp 10:22 Drug: AZITHromycin 500 mg Route: IVPB; Infused Over: 1 hrs; Site: right antecubital; bp 10:49 Follow up: IV Status: Completed infusion; IV Intake: 100ml bp Intake: 10:22 IV: 50ml; Total: 50ml. bp 10:49 IV: 100ml; Total: 150ml. bp Outcome: 10:11 Discharge ordered by . pm1 10:51 Discharged to home ambulatory. bp 10:51 Condition: stable 10:51 Discharge instructions given to patient, Instructed on discharge instructions, follow up and referral plans. safe sex practices, Demonstrated understanding of instructions, follow-up care. 10:51 Patient left the ED. bp Signatures: Dispatcher [employer] Geraldine Andrade Patrick, NP DOCTOR OF NURSING PRACTICE pm1 Reji Mahoney RN RN jd3 Willie Vickers RN RN bp Benoit Mak RN RN ke1
--- NOTE | 2021-03-27 10:11 | EDPHYS ---
[facility] Name: Samuel Guzman Age: 56 yrs Sex: Male : 1965 Arrival Date: 03/27/2021 Time: 07:45 Bed 7 Private MD: ED Physician Luis Bullard HPI: 03/27 08:47 This 56 yrs old Black Male presents to ER via Ambulatory with complaints of Urinary pm1 Problem - blood in urine. 08:47 The patient presents with flank pain, of the left low back, a possible STD exposure, pm1 unprotected intercourse with blood present at meatus during intercourse. Onset: The symptoms/episode began/occurred 2 day(s) ago. Modifying factors: The symptoms are alleviated by nothing, the symptoms are aggravated by sexual intercourse. Associated signs and symptoms: Pertinent positives: abdominal pain, suprapubic area, penile discharge, Pertinent negatives: fever. Severity of symptoms: in the emergency department the symptoms are unchanged. The patient has not experienced similar symptoms in the past. The patient has not recently seen a physician. Historical: - Allergies: 07:55 No Known Allergies; bp - Home Meds: 07:55 None [Active]; bp - PMHx: 07:55 Hypertension; bp - Immunization history:: Adult Immunizations up to date. - Social history:: Smoking status: unknown. ROS: 08:47 Constitutional: Negative for fever, chills, and weight loss. pm1 08:47 Cardiovascular: Negative for chest pain, palpitations, and edema, Respiratory: Negative pm1 for shortness of breath, cough, wheezing, and pleuritic chest pain. 08:47 MS/Extremity: Negative for injury and deformity, Skin: Negative for injury, rash, and discoloration, Neuro: Negative for headache, weakness, numbness, tingling, and seizure. 08:47 Abdomen/GI: Positive for abdominal pain, of the suprapubic area. 08:47 Back: Positive for flank pain, on the left. 08:47 : Positive for hematuria, penile discharge. 08:47 All other systems are negative. Exam: 08:47 Constitutional: This is a well developed, well nourished patient who is awake, alert, pm1 and in no acute distress. Head/Face: Normocephalic, atraumatic. 08:47 Back: No spinal tenderness. No costovertebral tenderness. Full range of motion. Skin: Warm, dry with normal turgor. Normal color with no rashes, no lesions, and no evidence of cellulitis. MS/ Extremity: Pulses equal, no cyanosis. Neurovascular intact. Full, normal range of motion. 08:47 Cardiovascular: Exam negative for acute changes, Rate: normal, Rhythm: regular, Pulses: no pulse deficits are appreciated, Heart sounds: normal. 08:47 Respiratory: Exam negative for acute changes, respiratory distress, shortness of breath. 08:47 Neuro: Exam negative for acute changes, Orientation: is normal, Mentation: is normal, Motor: is normal, moves all fours. 10:03 : Male external genitalia: penile discharge, white, tenderness, is not appreciated, pm1 Sexual behavior: the patient is sexually active. Vital Signs: 07:54 BP 171 / 101; Pulse 87; Resp 12; Temp 98; Pulse Ox 97% ; Weight 91.63 kg; Height 5 ft. bp 11 in. (180.34 cm); 09:32 BP 147 / 95; Pulse 66; Resp 17 S; Pulse Ox 99% on R/A; jd3 10:50 BP 135 / 85; Pulse 65; Resp 17; Pulse Ox 98% ; bp 07:54 Body Mass Index 28.17 (91.63 kg, 180.34 cm) bp MDM: 08:01 Patient medically screened. pm1 10:10 Data reviewed: vital signs. Data interpreted: Pulse oximetry: on room air is 99 %. pm1 Interpretation: normal. Counseling: I had a detailed discussion with the patient and/or guardian regarding: the historical points, exam findings, and any diagnostic results supporting the discharge/admit diagnosis, lab results, radiology results, the need for outpatient follow up, to return to the emergency department if symptoms worsen or persist or if there are any questions or concerns that arise at home, significant other will need treatment to avoid reinfection. 16:09 ED course: Attempted to call patient multiple times to give the patient a prescription pm1 for doxycycline. Patient's phone number not available to take phone calls. 03/27 08:22 Order name: Basic Metabolic Panel pm1 03/27 08:22 Order name: CBC with Diff; Complete Time: 09:36 pm1 03/27 08:22 Order name: Hepatic Function; Complete Time: 10:42 pm1 03/27 08:22 Order name: Lipase; Complete Time: 10:42 pm1 03/27 08:22 Order name: Urine Microscopic Only; Complete Time: 09:40 pm1 03/27 08:23 Order name: Basic Metabolic Panel; Complete Time: 10:42 EDMS 03/27 08:22 Order name: IV Saline Lock; Complete Time: 09:16 pm1 03/27 08:22 Order name: Labs collected and sent; Complete Time: 09:16 pm1 03/27 08:22 Order name: Urine Dipstick-Ancillary (obtain specimen); Complete Time: 09:16 pm1 03/27 08:22 Order name: CT Abd/Pelvis - IV Contrast Only; Complete Time: 09:09 pm1 03/27 08:47 Order name: Urine Dipstick-Ancillary; Complete Time: 08:54 EDMS 03/27 09:40 Order name: Urine Culture EDMS Administered Medications: 10:10 Drug: Rocephin - (cefTRIAXone) 1 grams Route: IVPB; Infused Over: 30 mins; Site: right bp antecubital; 10:22 Follow up: IV Status: Completed infusion; IV Intake: 50ml bp 10:22 Drug: AZITHromycin 500 mg Route: IVPB; Infused Over: 1 hrs; Site: right antecubital; bp 10:49 Follow up: IV Status: Completed infusion; IV Intake: 100ml bp Disposition: 11:08 Co-signature as Attending Physician, Luis Bullard MD. rn Disposition Summary: 03/27/21 10:11 Discharge Ordered Location: Home pm1 Problem: new pm1 Symptoms: have improved pm1 Condition: Stable pm1 Diagnosis - Nonspecific urethritis pm1 Followup: pm1 - With: Emergency Department - When: As needed - Reason: Worsening of condition Followup: pm1 - With: Private Physician - When: 2 - 3 days - Reason: Recheck today's complaints, Continuance of care, Re-evaluation by your physician Discharge Instructions: - Discharge Summary Sheet pm1 - Urethritis, Adult pm1 Forms: - Medication Reconciliation Form pm1 - Thank You Letter pm1 - Antibiotic Education pm1 - Prescription Opioid Use pm1 Signatures: Dispatcher [employer] EDMS Luis Bullard MD MD rn Marinas, Patrick, ENDOCRINOLOGY SPECIALIST ENDOCRINOLOGY SPECIALIST pm1 Willie Vickers, RN RN bp
[2021-03-27 10:34] LABS: Sodium Level 138 mmol/L (136-145)
[2021-03-27 10:58] VITALS: TEMP 98
[2021-03-27 11:00] VITALS: BP 135/85; O2SAT 98
== END 2021-03-27 10:51 | disposition home or self-care (01) ==
LOC: ER 07:43
DX: N34.1 Nonspecific urethritis (principal); I10 Essential (primary) hypertension
CPT/HCPCS: 36415; 74177; 80048; 80076; 81003; 81015; 82565; 83690; 85025; 87086; 87088; 96365; 96375; 99284; J0456; Q9967

== ENCOUNTER 2022-11-03 16:23 | Emergency (ER) | payer BC, SELFPAY ==
[2022-11-03 16:56] LABS: Absolute Lymphocytes (CBC) 1.1 K/uL (0.7-4.9); Hematocrit 39.5 % (39.6-49.0); Lymphocytes % 7.5 % (15.3-44.8); MCV 87.7 fL (80-100); MPV 7.9 fL (7.6-11.3); Platelets 203 thou/uL (152-406)
[2022-11-03 17:15] LABS: Albumin 3.5 g/dL (3.4-5.0); Bilirubin Total 0.6 mg/dL (0.2-1.0); Potassium 3.7 mEq/L (3.5-5.1); Protein, Total 7.1 g/dL (6.4-8.2)
[2022-11-03] MEDS ORDERED: NA CHLORIDE 0.9% 1,000 ML ONE (17:49)
[2022-11-03] MEDS ORDERED: ONDANSETRON 4 MG/2 ML VIAL ONE (17:49)
[2022-11-03] MEDS ORDERED: MORPHINE 4 MG/ML SYR ONE (17:49)
[2022-11-03] MEDS ORDERED: ACETAMINOPHEN 500 MG TAB ONE (18:33)
[2022-11-03 18:47] LABS: Specific Gravity 1.013 (1.005-1.030); Urine Bacteria <20 /HPF (<20); Urine Bilirubin NEGATIVE (Negative); Urine Blood Negative (Negative); Urine Clarity Turbid (Clear); Urine Color Light-Yellow (Yellow); Urine Glucose NEGATIVE (Negative); Urine Protein NEGATIVE (Negative); Urine RBC <5 /HPF (None Seen); Urine Urobilinogen 1+ (Normal); Urine pH 6.5 (5.0-7.0)
--- NOTE | 2022-11-03 19:37 | RAD REPORT ---
EXAM DESCRIPTION: US - Scrotum Testicles - 11/03/2022 5:18 pm CLINICAL HISTORY: Left testicular pain COMPARISON: None FINDINGS: Right testicle measures 3.2 x 1.9 x 2.2 centimeters. Echotexture is relatively homogeneous . Normal blood flow Left testicle measures 3.4 x 1.8 x 2.9 centimeters. Echotexture is relatively homogeneous. Normal blo od flow The epididymides are normal in size and echotexture. Left epididymis contains increased blood flow. Moderate right hydrocele IMPRESSION: Left epididymitis Moderate right hydrocele
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
--- NOTE | 2022-11-03 20:24 | EDPHYS ---
Physician Documentation [facility] Name: Samuel Guzman Age: 57 yrs Sex: Male : 1965 Arrival Date: 11/03/2022 Time: 16:23 Bed 12 Private MD: ED Physician Adam Woodruff HPI: 11/03 16:45 This 57 yrs old Black Male presents to ER via Ambulatory with complaints of Abdominal cp Pain. 16:45 The patient presents with abdominal pain left lower abdomen and left flank. Onset: The cp symptoms/episode began/occurred 1 month(s) ago, intermittent with pain since yesterday. The symptoms do not radiate. Associated signs and symptoms: Pertinent positives: left testicular pain. 16:45 The symptoms are described as waxing/waning. cp 16:45 Modifying factors: the symptoms are aggravated by walking, standing. Severity of pain: cp in the emergency department the pain is unchanged despite home interventions. Historical: - Allergies: 16:41 No Known Allergies; hb - Home Meds: 16:41 None [Active]; hb - PMHx: 16:41 Hypertension; hb - PSHx: 16:41 None; hb - Immunization history:: Adult Immunizations up to date. - Social history:: Smoking status: Patient denies any tobacco usage or history of. ROS: 16:50 Constitutional: Positive for weight loss, Negative for body aches, chills, fever, poor cp PO intake. 16:50 Eyes: Negative for injury, pain, redness, and discharge. cp 16:50 ENT: Negative for drainage from ear(s), ear pain, sore throat, difficulty swallowing, difficulty handling secretions. 16:50 Cardiovascular: Negative for chest pain, edema. 16:50 Respiratory: Negative for cough, shortness of breath, wheezing. 16:50 Abdomen/GI: Positive for abdominal pain, nausea, constipation, of the anterior aspect of left lateral abdomen, posterior aspect of left lateral abdomen and left lower quadrant, Negative for vomiting, diarrhea, anorexia, black/tarry stool, rectal bleeding. 16:50 : Positive for testicular pain Negative for urinary symptoms, penile discharge. 16:50 Neuro: Negative for altered mental status, dizziness, syncope, weakness. 16:50 All other systems are negative. Exam: 16:55 Constitutional: The patient appears in no acute distress, alert, awake, cp non-diaphoretic, non-toxic, well developed, well nourished, uncomfortable. 16:55 Head/Face: Normocephalic, atraumatic. cp 16:55 Eyes: Periorbital structures: appear normal, Conjunctiva: normal, no exudate, no injection, Sclera: no appreciated abnormality, Lids and lashes: appear normal, bilaterally. 16:55 ENT: External ear(s): are unremarkable, Nose: is normal, Mouth: Lips: moist, Oral mucosa: pink and intact, moist, Posterior pharynx: is normal, airway is patent, no erythema, no exudate. 16:55 Neck: ROM/movement: is normal, is supple, without pain, no range of motions limitations. 16:55 Chest/axilla: Inspection: normal, Palpation: is normal, no crepitus, no tenderness. 16:55 Cardiovascular: Rate: normal, Rhythm: regular, Edema: is not appreciated, JVD: is not cp appreciated. 16:55 Respiratory: the patient does not display signs of respiratory distress, Respirations: normal, no use of accessory muscles, no retractions, labored breathing, is not present, Breath sounds: are clear throughout, no decreased breath sounds, no stridor, no wheezing. 16:55 Abdomen/GI: Inspection: abdomen appears normal, Bowel sounds: active, all quadrants, Palpation: soft, in all quadrants, moderate abdominal tenderness, in the anterior aspect of left lateral abdomen, posterior aspect of left lateral abdomen and left lower quadrant, involuntary guarding, is not appreciated. 16:55 Back: CVA tenderness, is absent. 16:55 Skin: no rash present. Vital Signs: 16:39 BP 152 / 81; Pulse 66; Resp 16; Temp 98.9; Pulse Ox 100% on R/A; Weight 74.84 kg; hb Height 5 ft. 11 in. ; Pain 10/10; 18:20 BP 152 / 76; Pulse 74; Resp 16; Temp 100.1(O); Pulse Ox 100% ; iw 20:47 BP 147 / 75; Pulse 69; Resp 20; Temp 98.7; Pulse Ox 96% ; Pain 0/10; kb3 16:39 Body Mass Index 23.01 (74.84 kg, 180.34 cm) hb 16:39 Pain Scale: Adult hb 20:47 Pain Scale: Adult kb3 MDM: 16:39 Patient medically screened. 17:00 Differential diagnosis: bowel obstruction, diverticulitis, Mesenteric ischemia or cp infarction, non-specific abd pain, Prostatitis, Pyelonephritis, Testicular Torsion, Ureterolithiasis, urinary tract infection. 20:22 Data reviewed: vital signs, nurses notes, lab test result(s), radiologic studies, CT cp scan, ultrasound. 20:22 I considered the following discharge prescriptions or medication management in the emergency department Medications were administered in the Emergency Department. See MAR. Care significantly affected by the following chronic conditions: Hypertension. Counseling: I had a detailed discussion with the patient and/or guardian regarding the historical points, exam findings, and any diagnostic results supporting the discharge/admit diagnosis, lab results, radiology results, the need for outpatient follow up, a family practitioner, a television station manager, to return to the emergency department if symptoms worsen or persist or if there are any questions or concerns that arise at home. Special discussion: Based on the patient's Hx, exam, and Dx evaluation, there is no indication for emergent surgery or inpatient Tx. It is understood by the patient/guardian that if the Sx's persist or worsen they need to return immediately for re-evaluation. 11/03 16:39 Order name: CBC with Diff; Complete Time: 17:16 11/03 20:00 Interpretation: Normal except: WBC 14.60; HGB 12.9; HCT 39.5; WES% 85.6; LYM% 7.5; NEUT cp A 12.5. 11/03 16:39 Order name: CMP; Complete Time: 17:16 11/03 17:44 Interpretation: Normal except: GLUC 110; GFR 85; GLOB 3.6; A/G 1.0. 11/03 16:39 Order name: Lipase; Complete Time: 17:16 11/03 16:39 Order name: Urinalysis w/ reflexes; Complete Time: 19:57 11/03 19:57 Interpretation: Normal except: [facility] Turbid; UUROB 1+; UESTR 75. 11/03 16:39 Order name: US Scrotum Testicles; Complete Time: 19:57 11/03 19:57 Interpretation: Report reviewed. 11/03 16:39 Order name: CT Abd/Pelvis - PO and IV Contrast; Complete Time: 19:57 cp 11/03 16:39 Order name: IV Saline Lock; Complete Time: 16:49 cp 11/03 16:39 Order name: Labs collected and sent; Complete Time: 16:49 cp Administered Medications: 17:43 Drug: NS 0.9% IV 1000 ml Route: IV; Rate: 1 bolus; Site: right antecubital; iw 19:00 Follow up: Response: No adverse reaction; IV Status: Completed infusion; IV Intake: kb3 1000ml 17:43 Drug: morphine IVP or IV 4 mg Route: IVP; Infused Over: 4 mins; Site: right antecubital;iw 18:27 Follow up: Response: No adverse reaction; Pain is decreased iw 17:43 Drug: Ondansetron IVP 4 mg Route: IVP; Site: right antecubital; iw 18:27 Follow up: Response: No adverse reaction iw 18:27 Drug: Acetaminophen PO 1000 mg Route: PO; iw 19:00 Follow up: Response: No adverse reaction; Pain is decreased kb3 20:46 Drug: AZITHromycin PO 1 grams Route: PO; kb3 20:56 Follow up: Response: No adverse reaction iw 20:47 Drug: Rocephin IV 1 grams Route: IV; Rate: calculated rate; Site: right antecubital; kb3 20:57 Follow up: IV Status: Completed infusion iw Disposition Summary: 11/03/22 20:23 Discharge Ordered Location: Home cp Problem: new cp Symptoms: have improved cp Condition: Stable cp Diagnosis - Lower abdominal pain, unspecified cp - Constipation cp - Epididymitis - left cp Followup: cp - With: Umberto Arredondo MD - When: 1 week - Reason: Recheck today's complaints Discharge Instructions: - Discharge Summary Sheet cp - Abdominal Pain, Adult cp - Constipation, Adult cp - Epididymitis cp - Form - Excuse from Work, School, or Physical Activity cp Forms: - Medication Reconciliation Form cp - Thank You Letter cp - Antibiotic Education cp - Prescription Opioid Use cp - Patient Portal Instructions cp - Leadership Thank You Letter cp Prescriptions: - Protonix 40 mg Oral Tablet - take 1 tablet by ORAL route once daily; 30 tablet; Refills: 0, Product cp Selection Permitted - Doxycycline Hyclate 100 mg Oral Tablet - take 1 tablet by ORAL route every 12 hours; 20 tablet; Refills: 0, Product cp Selection Permitted Addendum: 11/06/2022 08:11 Co-signature as Attending Physician, Adam Woodruff DO I was immediately available on-site m s3 in the Emergency Department for consultation in the care of the patient. Signatures: Dispatcher [employer] Bee Hillman, RN RN iw Cyril Jeffries PA PA cp Baxter, Heather, RN RN hb Sims, Marcus, DO DO ms3 Emmie Ramsey RN RN kb3
--- NOTE | 2022-11-03 20:24 | ER ---
Nurse's Notes [facility] Name: Samuel Guzman Age: 57 yrs Sex: Male : 1965 Arrival Date: 11/03/2022 Time: 16:23 Bed 12 Private MD: Diagnosis: Lower abdominal pain, unspecified;Constipation;Epididymitis-left Presentation: 11/03 16:39 Chief complaint: Left lower abdominal pain, left flank pain, constipation x months, N/C hb today. Coronavirus screen: At this time, the client does not indicate any symptoms associated with coronavirus-19. Ebola Screen: No symptoms or risks identified at this time. Initial Sepsis Screen: Does the patient meet any 2 criteria? No. Patient's initial sepsis screen is negative. Does the patient have a suspected source of infection? No. Patient's initial sepsis screen is negative. Risk Assessment: Do you want to hurt yourself or someone else? Patient reports no desire to harm self or others. 16:39 Method Of Arrival: Ambulatory hb 16:39 Acuity: FRANCISCO 3 hb 16:39 Onset of symptoms is unknown. hb Historical: - Allergies: 16:41 No Known Allergies; hb - Home Meds: 16:41 None [Active]; hb - PMHx: 16:41 Hypertension; hb - PSHx: 16:41 None; hb - Immunization history:: Adult Immunizations up to date. - Social history:: Smoking status: Patient denies any tobacco usage or history of. Screenin:44 [facility] ED Fall Risk Assessment (Adult) Score/Fall Risk Level 0 - 2 = Low Risk. Abuse iw screen: Denies threats or abuse. Denies injuries from another. Nutritional screening: No deficits noted. Tuberculosis screening: No symptoms or risk factors identified. Assessment: 17:44 General: Appears in no apparent distress. Behavior is calm, cooperative. Pain: iw Complains of pain in abdomen Pain radiates to left testicle. Neuro: Level of Consciousness is awake, alert, obeys commands, Oriented to person, place, time, situation, Moves all extremities. Full function. Cardiovascular: Patient's skin is warm and dry. Respiratory: Respiratory effort is even, unlabored, Respiratory pattern is regular. GI: Bowel sounds present X 4 quads. Abd is soft X 4 quads Reports lower abdominal pain, upper abdominal pain, nausea. Derm: Skin is intact, is healthy with good turgor. Musculoskeletal: Range of motion: intact in all extremities. 18:20 Reassessment: Patient appears in no apparent distress at this time. Patient and/or iw family updated on plan of care and expected duration. Pain level reassessed. Patient is alert, oriented x 3, equal unlabored respirations, skin warm/dry/pink. 19:30 General: Pt returned from CT via stretcher. Ambulatory to restroom without distress. kb3 20:47 General: Pt reports feeling well, denies pain at this time. Discussed bland diet, kb3 discharge medications, follow up with Dr Chatterjee for HTN evaluation and Dr Arredondo for GI evaluation. Pt reports understanding of all discussed. Vital Signs: 16:39 BP 152 / 81; Pulse 66; Resp 16; Temp 98.9; Pulse Ox 100% on R/A; Weight 74.84 kg; hb Height 5 ft. 11 in. ; Pain 10/10; 18:20 BP 152 / 76; Pulse 74; Resp 16; Temp 100.1(O); Pulse Ox 100% ; iw 20:47 BP 147 / 75; Pulse 69; Resp 20; Temp 98.7; Pulse Ox 96% ; Pain 0/10; kb3 16:39 Body Mass Index 23.01 (74.84 kg, 180.34 cm) hb 16:39 Pain Scale: Adult hb 20:47 Pain Scale: Adult kb3 ED Course: 16:26 Patient arrived in ED. im 16:27 Lindsay Ritter PA-C is PHCP. sb4 16:27 Adam Woodruff DO is Attending Physician. sb4 16:27 Cyril Jeffries PA is PHCP. cp 16:38 Kasia Sarmiento, RN is Primary Nurse. hb 16:39 Triage completed. hb 16:41 Arm band placed on. hb 16:49 CBC with Diff Sent. bc6 16:49 CMP Sent. bc6 16:50 Lipase Sent. bc6 16:50 Inserted saline lock: 20 gauge in right antecubital area, using aseptic technique. bc6 Blood collected. 17:00 Provided Education on: PO contrast . iw 17:19 US Scrotum Testicles In Process Unspecified. EDMS 18:20 Patient has correct armband on for positive identification. iw 18:21 Primary Nurse role handed off by Kasia Sarmiento RN iw 18:21 Bee Agudelo, RN is Primary Nurse. iw 19:30 CT Abd/Pelvis - PO and IV Contrast In Process Unspecified. EDMS 20:22 Umberto Arredondo MD is Referral Physician. cp 20:47 No provider procedures requiring assistance completed. IV discontinued, intact, kb3 bleeding controlled, No redness/swelling at site. Pressure dressing applied. Administered Medications: 17:43 Drug: NS 0.9% IV 1000 ml Route: IV; Rate: 1 bolus; Site: right antecubital; iw 19:00 Follow up: Response: No adverse reaction; IV Status: Completed infusion; IV Intake: kb3 1000ml 17:43 Drug: morphine IVP or IV 4 mg Route: IVP; Infused Over: 4 mins; Site: right antecubital;iw 18:27 Follow up: Response: No adverse reaction; Pain is decreased iw 17:43 Drug: Ondansetron IVP 4 mg Route: IVP; Site: right antecubital; iw 18:27 Follow up: Response: No adverse reaction iw 18:27 Drug: Acetaminophen PO 1000 mg Route: PO; iw 19:00 Follow up: Response: No adverse reaction; Pain is decreased kb3 20:46 Drug: AZITHromycin PO 1 grams Route: PO; kb3 20:56 Follow up: Response: No adverse reaction iw 20:47 Drug: Rocephin IV 1 grams Route: IV; Rate: calculated rate; Site: right antecubital; kb3 20:57 Follow up: IV Status: Completed infusion iw Medication: 20:47 VIS not applicable for this client. kb3 Intake: 19:00 IV: 1000ml; Total: 1000ml. kb3 Outcome: 20:23 Discharge ordered by . cp 20:47 Discharged to home ambulatory. kb3 20:47 Condition: stable 20:47 Discharge instructions given to patient, Instructed on discharge instructions, follow up and referral plans. medication usage, Demonstrated understanding of instructions, follow-up care, medications, Prescriptions given X 2. 20:50 Patient left the ED. kb3 Signatures: Dispatcher [employer] EDIL Bee Agudelo RN RN iw Cyril Jeffries PA PA cp Baxter, Heather, RN RN Emmie Ramsey RN RN kb3 Lindsay Ritter PA-C PA-C Elin Bee6 Angelica Bernard Corrections: (The following items were deleted from the chart) 16:41 16:39 Chief complaint: Left lower abdominal and flank pain x days hb hb
[2022-11-03] MEDS ORDERED: CEFTRIAXONE 1000 MG/VIAL ONE (20:42)
[2022-11-03] MEDS ORDERED: AZITHROMYCIN 250 MG TAB ONE (20:42)
[2022-11-03 21:45] VITALS: BP 147/75; TEMP 98.7; O2SAT 96
== END 2022-11-03 20:50 | disposition home or self-care (01) ==
LOC: ER 16:23
DX: K59.00 Constipation, unspecified (principal); N45.1 Epididymitis; I10 Essential (primary) hypertension
CPT/HCPCS: 96361; 85025; 81001; 36415; 83690; 80053; 74177; 76870; 96375; 96374; 99284; Q9967; J2405; J7030; J0696

== ENCOUNTER 2023-08-21 20:46 | Emergency (ER) | payer BC ==
--- NOTE | 2023-08-21 22:07 | RAD REPORT ---
EXAM DESCRIPTION: RAD - Abdomen Acute Series - 08/21/2023 9:59 pm CLINICAL HISTORY: Abdominal pain. Fecal impaction FINDINGS: Lungs appear clear of acute infiltrate. Free air is not seen beneath the diaphragm. A metallic fragment overlies right pelvis. A moderate amount of stool is present throughout the colon. No obstruction
[2023-08-21] MEDS ORDERED: KETOROLAC 30 MG/ML INJ ONE (23:49)
[2023-08-21] MEDS ORDERED: LORazepam 2 MG/ML VIAL ONE (23:49)
[2023-08-21] MEDS ORDERED: DICYCLOMINE HCL 20 MG/2 ML AMP IM ONE (23:49)
[2023-08-21] MEDS ORDERED: ONDANSETRON 4 MG/2 ML VIAL ONE (23:49)
[2023-08-21] MEDS ORDERED: NA CHLORIDE 0.9% 1,000 ML ONE (23:50)
[2023-08-21] MEDS ORDERED: FAMOTIDINE 20 MG/2 ML VIAL IV ONE (23:50)
[2023-08-21 23:57] LABS: Absolute Eosinophils 0.3 K/uL (0-0.5); Absolute Lymphocytes (CBC) 2.3 K/uL (0.7-4.9); Absolute Monocytes 0.7 K/uL (0.1-1.3); Absolute Neutrophil 4.1 K/uL (1.8-8.0); Basophils % 0.4 % (0-1.3); Eosinophils % 3.7 % (0-4.4); Hematocrit 42.5 % (39.6-49.0); Hemoglobin 14.1 g/dL (13.6-17.9); Lymphocytes % 30.4 % (15.3-44.8); MCH 29.1 pg (27.0-35.0); MCHC 33.1 g/dL (32.0-36.0); MCV 87.8 fL (80-100); MPV 8.1 fL (7.6-11.3); Neutrophils % 55.5 % (41.7-73.7); Nucleated Red Blood Cells % 0.1 % (0-0); Platelets 236 thou/uL (152-406); RBC Red Blood Cell Count 4.84 M/uL (4.33-5.43); Red Cell Distribution Width 14.1 % (12.1-15.2)
[2023-08-22 00:19] LABS: ALT/SGPT 26 U/L (16-61); AST/SGOT 21 U/L (15-37); Albumin 3.4 g/dL (3.4-5.0); Albumin/Globulin Ratio 0.8 (1.1-1.8); Alkaline Phosphatase 111 U/L (45-117); Anion Gap 7.1 mEq/L (5.0-15.0); BUN Blood Urea Nitrogen 10 mg/dL (7-18); Bicarbonate 26 mEq/L (21-32); Bilirubin Total 0.8 mg/dL (0.2-1.0); Globulin 4.1 g/dL (2.3-3.5); Glomerular Filtration Rate 95 ml/min (=/>90); Glucose Level 98 mg/dL (74-106); Lipase 31 U/L (13-75); Potassium 4.1 mEq/L (3.5-5.1); Protein, Total 7.5 g/dL (6.4-8.2); Sodium Level 137 mEq/L (136-145)
[2023-08-22 00:26] LABS: Thyroid Stimulating Hormone < 0.005 uIU/mL (0.358-3.740)
--- NOTE | 2023-08-22 01:35 | ER ---
Nurse's Notes [facility] Name: Samuel Guzman Age: 58 yrs Sex: Male : 1965 Arrival Date: 08/21/2023 Time: 20:46 Bed 13 Private MD: Diagnosis: Constipation, unspecified;Constipation, slow transit constipation, decreased appetite, Thyroid disorder with low TSH Presentation: 08/20 21:41 Chief complaint: Patient states: Pt diagnosed with constipation on 08/18. Pt now c/o dry tl4 mouth and decreased appetite since starting prescribed colace. Pt states he still has not had resolution of constipation. Coronavirus screen: At this time, the client does not indicate any symptoms associated with coronavirus-19. Ebola Screen: No symptoms or risks identified at this time. Initial Sepsis Screen: Does the patient meet any 2 criteria? No. Patient's initial sepsis screen is negative. Does the patient have a suspected source of infection? No. Patient's initial sepsis screen is negative. Risk Assessment: Do you want to hurt yourself or someone else? Patient reports no desire to harm self or others. Onset of symptoms was August 19, 2023. 21:41 Method Of Arrival: Ambulatory tl4 21:41 Acuity: FRANCISCO 3 tl4 Triage Assessment: 21:46 General: Appears in no apparent distress. Behavior is calm, cooperative. Pain: tl4 Complains of pain in abdomen. EENT: No signs and/or symptoms were reported regarding the EENT system. Neuro: Level of Consciousness is awake, alert, obeys commands, Oriented to person, place, time, situation. Cardiovascular: Capillary refill < 3 seconds Patient's skin is warm and dry. Respiratory: Airway is patent Respiratory effort is even, unlabored, Respiratory pattern is regular, symmetrical, Breath sounds are clear bilaterally. GI: Reports constipation. : No signs and/or symptoms were reported regarding the genitourinary system. Derm: No signs and/or symptoms reported regarding the dermatologic system. Musculoskeletal: No signs and/or symptoms reported regarding the musculoskeletal system. Historical: - Allergies: 21:45 No Known Allergies; tl4 - Home Meds: 21:45 losartan 50 mg Oral tablet daily [Active]; tl4 - PMHx: 21:45 Hypertension; tl4 - Immunization history:: Adult Immunizations unknown. - Infectious Disease History:: Denies. - Social history:: Smoking status: Patient reports the use of cigarette tobacco products, smokes one pack cigarettes per day. - Family history:: not pertinent. Screenin/03 01:11 [facility] ED Fall Risk Assessment (Adult) History of falling in the last 3 months, kd3 including since admission No falls in past 3 months (0 pts) Confusion or Disorientation No (0 pts) Intoxicated or Sedated No (0 pts) Impaired Gait No (0 pts) Mobility Assist Device Used No (0 pt) Altered Elimination No (0 pt) Score/Fall Risk Level 0 - 2 = Low Risk Oriented to surroundings. Abuse screen: Denies threats or abuse. Denies injuries from another. Nutritional screening: No deficits noted. Tuberculosis screening: No symptoms or risk factors identified. Assessment: 00:03 General: Appears in no apparent distress. Behavior is calm, cooperative. Neuro: Level kd3 of Consciousness is awake, alert, obeys commands, Oriented to person, place, time, situation. Cardiovascular: Patient's skin is warm and dry. Respiratory: Airway is patent Trachea midline Respiratory effort is even, unlabored, Respiratory pattern is regular, symmetrical. GI: Reports intolerance of fluids, intolerance of food, nausea. Vital Signs: 08/20 21:41 BP 158 / 94; Pulse 96; Resp 20; Temp 99.1(O); Pulse Ox 99% on R/A; Weight 74.84 kg; tl4 Height 5 ft. 11 in. ; Pain 8/10; 08/21 00:04 BP 146 / 83; Pulse 76; Resp 16; Pulse Ox 99% on R/A; kd3 01:10 BP 123 / 92; Pulse 84; Resp 17; Pulse Ox 98% on R/A; kd3 02:30 BP 124 / 78; Pulse 88; Resp 17; Pulse Ox 98% on R/A; kd3 08/20 21:41 Body Mass Index 23.01 (74.84 kg, 180.34 cm) tl4 08/20 21:41 Pain Scale: Adult tl4 [place] Coma Score: 21:02 Eye Response: spontaneous(4). Motor Response: obeys commands(6). Verbal Response: sp4 oriented(5). Total: 15. ED Course: 08/20 20:49 Patient arrived in ED. ra3 20:53 Cristian Rae MD is Attending Physician. sp4 21:45 Triage completed. tl4 21:47 Arm band placed on right wrist. tl4 22:01 Abdomen Acute Series XRAY In Process Unspecified. EDMS 23:34 Inserted saline lock: 20 gauge in right antecubital area, using aseptic technique. oe Blood collected. 23:35 T4 Free Sent. oe 23:35 TSH Sent. oe 23:36 CBC with Diff Sent. oe 23:36 CMP Sent. oe 23:36 Lipase Sent. oe 23:47 Leticia Salas, RICKEY is Primary Nurse. kd3 07 01:11 Patient has correct armband on for positive identification. Provided Education on: kd3 continuous monitoring . 01:32 Paul Martin DO is Referral Physician. sp4 02:31 No provider procedures requiring assistance completed. IV discontinued, intact, kd3 bleeding controlled, No redness/swelling at site. Pressure dressing applied. Administered Medications: 00:03 Drug: TORadol - Ketorolac IVP 30 mg IVP once Route: IVP; Site: right antecubital; kd3 02:32 Follow up: Response: No adverse reaction kd3 00:03 Drug: Ondansetron IVP 4 mg IVP once; over 2 minutes Route: IVP; Site: right antecubital;kd3 02:32 Follow up: Response: No adverse reaction kd3 00:04 Drug: NS 0.9% IV 1000 ml IV at 1 bolus Per protocol; 1000 mL bolus Route: IV; Rate: 1 kd3 bolus; Site: right antecubital; 00:04 Drug: Famotidine IVP 20 mg IVP once; dilute with 10 mL 0.9% NaCl; give over 2 minutes kd3 Route: IVP; Site: right antecubital; 02:31 Follow up: Response: No adverse reaction kd3 00:04 Drug: Ativan IVP 1 mg IVP once Route: IVP; Site: right antecubital; kd3 02:31 Follow up: Response: No adverse reaction; Anxiety decreased kd3 00:04 Drug: Dicyclomine IM 20 mg IM once Route: IM; Site: left gluteus; kd3 02:31 Follow up: Response: No adverse reaction kd3 02:30 Drug: Glycerin (Adult) FL Suppository 1 supp FL once Route: FL; kd3 02:31 Follow up: Response: No adverse reaction kd3 Medication: 00:03 VIS not applicable for this client. kd3 Outcome: 01:34 Discharge ordered by . sp4 02:31 Discharged to home ambulatory, kd3 02:31 Condition: stable 02:31 Discharge instructions given to patient, Instructed on discharge instructions, follow up and referral plans. Demonstrated understanding of instructions, follow-up care, medications, Prescriptions given X , 02:32 Patient left the ED. kd3 Signatures: Dispatcher [employer] EDMS Darvin Walker Kyli, RN RN kd3 Cristian Rae MD MD sp4 Valentin Pandey RN RN tl4 Rosette Mario 3
--- NOTE | 2023-08-22 01:35 | EDPHYS ---
Physician Documentation [facility] Name: Magda Castellanos Age: 58 yrs Sex: Male : 1965 Arrival Date: 08/21/2023 Time: 20:46 Bed 13 Private MD: ED Physician Cristian Rae HPI: 08/20 20:53 This 58 yrs old Black Male presents to ER via Unassigned with complaints of Decreased sp4 Appetite - Dry mouth. 08/21 21:02 58-year-old male presents with complaint of constipation, decreased appetite and dry sp4 mouth and feeling unwell. Patient was here yesterday for the complaint of constipation. CT has revealed significant constipation with possible fecal impaction in the rectum. . Historical: - Allergies: 08/20 21:45 No Known Allergies; tl4 - Home Meds: 21:45 losartan 50 mg Oral tablet daily [Active]; tl4 - PMHx: 21:45 Hypertension; tl4 - Immunization history:: Adult Immunizations unknown. - Infectious Disease History:: Denies. - Social history:: Smoking status: Patient reports the use of cigarette tobacco products, smokes one pack cigarettes per day. - Family history:: not pertinent. ROS: 08/21 21:02 Constitutional: Negative for fever, chills, and weight loss, positive for feeling sp4 unwell, decreased appetite, positive for dry mouth All other systems are negative, Exam: 21:02 Constitutional: This is a well developed, well nourished patient who is awake, alert, sp4 and in no acute distress. Head/Face: Normocephalic, atraumatic. Eyes: Pupils equal round and reactive to light, extra-ocular motions intact. Lids and lashes normal. Conjunctiva and sclera are not injected. Cornea within normal limits. Periorbital areas with no swelling, redness, or edema. ENT: Nares patent. No nasal discharge, no septal abnormalities noted. Tympanic membranes are normal and external auditory canals are clear. Oropharynx with no redness, swelling, or masses, exudates, or evidence of obstruction, uvula midline. Mucous membranes moist. Neck: Trachea midline, no thyromegaly or masses palpated, and no cervical lymphadenopathy. Supple, full range of motion without nuchal rigidity, or vertebral point tenderness. Chest/axilla: Normal chest wall appearance and motion. Nontender with no deformity. No lesions are appreciated. Cardiovascular: Regular rate and rhythm with a normal S1 and S2. No gallops, murmurs, or rubs. Normal PMI, no JVD. No pulse deficits. Respiratory: Lungs have equal breath sounds bilaterally, clear to auscultation and percussion. No rales, rhonchi or wheezes noted. No increased work of breathing, no retractions or nasal flaring. Abdomen/GI: Soft, with normal bowel sounds. No distension or tympany. No guarding or rebound. No evidence of tenderness throughout. Digital rectal exam revealed significant stool present in the rectum however fecal impaction is soft and does not require digital disimpaction. Back: No spinal tenderness. No costovertebral tenderness. Skin: Warm, dry with normal turgor. Normal color with no rashes, no lesions, and no evidence of cellulitis. MS/ Extremity: Pulses equal, no cyanosis. Neurovascular intact. Full, normal range of motion. Neuro: Awake and alert, GCS 15, oriented to person, place, time, and situation. Cranial nerves II-XII grossly intact. Motor strength 5/5 in all extremities. Sensory grossly intact. Vital Signs: 08/20 21:41 BP 158 / 94; Pulse 96; Resp 20; Temp 99.1(O); Pulse Ox 99% on R/A; Weight 74.84 kg; tl4 Height 5 ft. 11 in. ; Pain 8/10; 08/21 00:04 BP 146 / 83; Pulse 76; Resp 16; Pulse Ox 99% on R/A; kd3 01:10 BP 123 / 92; Pulse 84; Resp 17; Pulse Ox 98% on R/A; kd3 02:30 BP 124 / 78; Pulse 88; Resp 17; Pulse Ox 98% on R/A; kd3 08/20 21:41 Body Mass Index 23.01 (74.84 kg, 180.34 cm) tl4 08/20 21:41 Pain Scale: Adult tl4 [place] Coma Score: 21:02 Eye Response: spontaneous(4). Motor Response: obeys commands(6). Verbal Response: sp4 oriented(5). Total: 15. MDM: 08/20 20:55 Patient medically screened. sp4 08/21 01:31 ED course: RADIOLOGYSERVICES REPORT Name: MAGDA CASTELLANOS Acct Number: [id number] sp4 :1965 Age:58 Sex:M Ord Phys: Cristian Rae MD Unit Number: [id number] [place] [facility] Dr: Albert Mcmullen MD Status: REG ER ER Exam Date: 08/21/23 EXAM DESCRIPTION: RAD - AbdomenAcute Series - 08/21/2023 9:59 pm CLINICAL HISTORY: Abdominal pain. Fecal impaction FINDINGS: Lungs appear clear of acute infiltrate. Free air is not seen beneath the diaphragm. A metallic fragment overlies right pelvis. A moderate amount of stool is present throughout the colon. No obstruction . ED course: EXAM DESCRIPTION: CTAbdomen Pelvis W Contrast - 08/19/2023 10:57 am CLINICAL HISTORY: Abdominal pain. ABD PAIN COMPARISON: Head Brain Wo Cont dated 05/26/2023elvis dated 08/18/2023bdomen Pelvis W Contrast dated 11/03/2022; Abdomen Pelvis W Contrast dated 03/27/2021; Abdomen Pelvis W Contrast dated 08/18/2020 TECHNIQUE: Venous phase CT imaging of the abdomen and pelvis was performed with 100 ml non-ionic IV contrast. All CT scans are performed using dose optimization technique as appropriate and may include automated exposure control or mA/KV adjustment according to patient size. FINDINGS: The lung bases are clear. The liver, spleen, pancreas, adrenal glands and kidneys are within normal limits. No bowel obstruction, free air, free fluid or abscess. There is a large amount of stool in the rectum. There is moderate fecal retention. The appendix is normal. No evidence of significant lymphadenopathy. Thickened urinary bladder is seen with numerous small cystic areas in the wall. No suspicious bony findings. IMPRESSION: Moderate fecal retention with possible rectal impaction. Thickened urinary bladder wall is seen which could be related to chronic inflammation or infection. Consideration may be given to follow-up cystoscopy on a nonemergent basis. . 21:02 Differential Diagnosis Constipation, fecal impaction, obstipation, hypothyroidism. Data sp4 reviewed: vital signs, nurses notes, old medical records, lab test result(s), radiologic studies, plain films. ED course: Patient has low TSH level but normal free T4 level. Patient may have thyroid disorder which is contributing to his constipation. Patient was advised to see primary care physician and was referred to Dr. Martin with [facility]. 08/20 21:17 Order name: CBC with Diff; Complete Time: 00:44 sp4 08/20 21:17 Order name: CMP; Complete Time: 00:44 sp4 08/20 21:17 Order name: Lipase; Complete Time: 00:44 sp4 08/20 21:18 Order name: TSH; Complete Time: 00:44 sp4 08/20 21:18 Order name: T4 Free; Complete Time: 00:44 sp4 08/20 21:17 Order name: Abdomen Acute Series XRAY; Complete Time: 00:44 sp4 08/20 21:17 Order name: IV Saline Lock; Complete Time: 23:35 sp4 08/20 21:17 Order name: Labs collected and sent; Complete Time: 23:36 sp4 Administered Medications: 00:03 Drug: TORadol - Ketorolac IVP 30 mg IVP once Route: IVP; Site: right antecubital; kd3 02:32 Follow up: Response: No adverse reaction kd3 00:03 Drug: Ondansetron IVP 4 mg IVP once; over 2 minutes Route: IVP; Site: right antecubital;kd3 02:32 Follow up: Response: No adverse reaction kd3 00:04 Drug: NS 0.9% IV 1000 ml IV at 1 bolus Per protocol; 1000 mL bolus Route: IV; Rate: 1 kd3 bolus; Site: right antecubital; 00:04 Drug: Famotidine IVP 20 mg IVP once; dilute with 10 mL 0.9% NaCl; give over 2 minutes kd3 Route: IVP; Site: right antecubital; 02:31 Follow up: Response: No adverse reaction kd3 00:04 Drug: Ativan IVP 1 mg IVP once Route: IVP; Site: right antecubital; kd3 02:31 Follow up: Response: No adverse reaction; Anxiety decreased kd3 00:04 Drug: Dicyclomine IM 20 mg IM once Route: IM; Site: left gluteus; kd3 02:31 Follow up: Response: No adverse reaction kd3 02:30 Drug: Glycerin (Adult) [place] Suppository 1 supp MA once Route: MA; kd3 02:31 Follow up: Response: No adverse reaction kd3 Disposition Summary: 08/22/23 01:34 Discharge Ordered Notes: Location: Home sp4 Problem: new sp4 Symptoms: have improved sp4 Condition: Stable sp4 Diagnosis - Constipation, unspecified sp4 - Constipation, slow transit constipation, decreased appetite, Thyroid disorder sp4 with low TSH Followup: sp4 - With: Paul Martin DO - When: 7 - 10 days - Reason: Recheck today's complaints Discharge Instructions: - Discharge Summary Sheet sp4 - High-Fiber Eating Plan sp4 - Constipation, Adult, [id number] sp4 Forms: - Patient Portal Instructions sp4 Prescriptions: - Reglan 10 mg Oral Tablet - take 1 tablet ORAL route every 6 hours take 30 minutes before meals and at sp4 bedtime; 20 tablet; Refills: 0, Product Selection Permitted Signatures: Dispatcher [employer] EDLeticia Delgado RN RN kd3 Cristian Rae MD MD sp4 Valentin Pandey RN RN tl4 Corrections: (The following items were deleted from the chart) 08/20 21:18 21:18 THYROID STIMULAT HORMONE+C.LAB.BRZ ordered. EDMS EDMS 21:18 21:18 T4 FREE+C.LAB.BRZ ordered. EDMS EDMS
[2023-08-22] MEDS ORDERED: GLYCERIN PEDI RECTAL SUPP PR ONE (02:16)
[2023-08-22 02:59] VITALS: TEMP 99.1; O2SAT 98
[2023-08-22 03:23] VITALS: BP 124/78
== END 2023-08-22 02:32 | disposition home or self-care (01) ==
LOC: ER 20:46
DX: K59.01 Slow transit constipation (principal); R63.0 Anorexia; R94.6 Abnormal results of thyroid function studies; I10 Essential (primary) hypertension; F17.210 Nicotine dependence, cigarettes, uncomplicated
CPT/HCPCS: 85025; 36415; 84443; 84439; 83690; 80053; 74022; 96375; 96372; 96374; 99284; J0500; J2405; J7030

== ENCOUNTER 2024-01-23 06:45 | Emergency (ER) | payer BC ==
[2024-01-23] MEDS ORDERED: LOSARTAN POTASSIUM 50 MG TABLET ONE (08:09)
[2024-01-23 08:24] LABS: Absolute Basophils 0.1 K/uL (0-0.5); Absolute Eosinophils 0.3 K/uL (0-0.5); Absolute Lymphocytes (CBC) 1.9 K/uL (0.7-4.9); Absolute Monocytes 0.7 K/uL (0.1-1.3); Absolute Neutrophil 5.8 K/uL (1.8-8.0); Hematocrit 40.4 % (39.6-49.0); Hemoglobin 13.1 g/dL (13.6-17.9); Lymphocytes % 21.9 % (15.3-44.8); MCH 29.3 pg (27.0-35.0); MCHC 32.4 g/dL (32.0-36.0); MCV 90.5 fL (80-100); MPV 7.5 fL (7.6-11.3); Monocytes % 7.8 % (3.3-12.3); Neutrophils % 66.3 % (41.7-73.7); Platelets 224 thou/uL (152-406); RBC Red Blood Cell Count 4.46 M/uL (4.33-5.43); Red Cell Distribution Width 13.9 % (12.1-15.2)
--- NOTE | 2024-01-23 08:30 | RAD REPORT ---
EXAMINATION: ONE VIEW CHEST XR CLINICAL INDICATION: Male, 59 years old.,left arm pain TECHNIQUE: Frontal chest projection is submitted. Examination is limited by patient positioning and t echnique. COMPARISON: 08/21/2023 FINDINGS: The lungs are well inflated and clear. No pneumothorax or sizable effusion. The heart is normal in s ize. Mediastinal contours are unremarkable. IMPRESSION: No acute intrathoracic abnormalities.
[2024-01-23 08:41] LABS: Anion Gap 8.1 mEq/L (5.0-15.0); Potassium 4.1 mEq/L (3.5-5.1)
--- NOTE | 2024-01-23 09:54 | ER ---
Nurse's Notes [facility] Name: Samuel Guzman Age: 59 yrs Sex: Male : 1965 Arrival Date: 01/23/2024 Time: 06:45 Bed 13 Private MD: Diagnosis: Essential (primary) hypertension Presentation: 01/22 07:18 Chief complaint: Patient states: Out of BP medication, states that he takes Losartan 50 ph mg, called PCP and cannot get appointment until next week. Also c/o pain in L posterior neck and shoulder w/ tingling in back of arm and hand, denies chest pain. Coronavirus screen: Vaccine status: Patient reports being unvaccinated. Ebola Screen: No symptoms or risks identified at this time. Initial Sepsis Screen: Does the patient meet any 2 criteria? No. Patient's initial sepsis screen is negative. Does the patient have a suspected source of infection? No. Patient's initial sepsis screen is negative. Risk Assessment: Do you want to hurt yourself or someone else? Patient reports no desire to harm self or others. Onset of symptoms was January 23, 2024. 07:18 Method Of Arrival: Ambulatory 07:18 Acuity: FRANCISCO 3 ph Triage Assessment: 07:26 General: Appears in no apparent distress. comfortable, well groomed, Behavior is calm, ph cooperative, appropriate for age. Pain: Complains of pain in left posterior aspect of neck Pain radiates to posterior aspect of left shoulder. Neuro: Level of Consciousness is awake, alert, obeys commands, Oriented to person, place, time, situation. Cardiovascular: Denies chest pain. Respiratory: Airway is patent Respiratory effort is even, unlabored, Respiratory pattern is regular, symmetrical. Musculoskeletal: Range of motion: intact in all extremities. Historical: - Allergies: 07:24 No Known Allergies; ph - Home Meds: 07:24 losartan 50 mg Oral tablet daily [Active]; ph - PMHx: 07:24 Hypertension; ph - Immunization history:: Adult Immunizations unknown. - Infectious Disease History:: Denies. - Social history:: Smoking status: Patient reports the use of cigarette tobacco products, smokes one-half pack cigarettes per day. - Family history:: not pertinent. - Hospitalizations: : No recent hospitalization is reported. Screenin:25 [facility] ED Fall Risk Assessment (Adult) History of falling in the last 3 months, ph including since admission No falls in past 3 months (0 pts) Confusion or Disorientation No (0 pts) Intoxicated or Sedated Yes (3 pts) Impaired Gait Yes (1 pt) Mobility Assist Device Used No (0 pt) Altered Elimination No (0 pt) Score/Fall Risk Level 0 - 2 = Low Risk Oriented to surroundings, Maintained a safe environment, Hourly rounding (assess needs \T\ fall precautionary measures) done, Used ambulatory aids as needed (educated on \T\ assisted with). Abuse screen: Denies threats or abuse. Denies injuries from another. Nutritional screening: No deficits noted. Tuberculosis screening: No symptoms or risk factors identified. Assessment: 08:30 General: SEE TRIAGE ASSESSMENT. ph 09:25 Reassessment: Patient appears in no apparent distress at this time. Patient and/or ph family updated on plan of care and expected duration. Pain level reassessed. Patient is alert, oriented x 3, equal unlabored respirations, skin warm/dry/pink. Vital Signs: 07:18 BP 171 / 118; Pulse 86; Resp 18; Temp 97.8; Pulse Ox 95% on R/A; Weight 86.18 kg; ph Height 5 ft. 11 in. ; 07:28 BP 167 / 99; ph 08:30 BP 162 / 94; Pulse 81; Resp 18; Pulse Ox 99% on R/A; ph 09:24 BP 159 / 89; Pulse 84; Resp 18; Pulse Ox 98% on R/A; ph 07:18 Body Mass Index 26.50 (86.18 kg, 180.34 cm) ph ED Course: 06:50 Patient arrived in ED. gm2 06:58 Luis Bullard MD is Attending Physician. rn 07:13 Cari Kumar RN is Primary Nurse. ph 07:24 Triage completed. ph 07:26 Arm band placed on Patient placed in an exam room, on a stretcher. ph 07:46 XRAY Chest (1 view) In Process Unspecified. EDMS 08:15 Inserted saline lock: 20 gauge in right antecubital area, using aseptic technique. ph Blood collected. Flushed with 10 mL NS. 08:38 Basic Metabolic Panel Sent. ph 08:38 NT PRO-BNP Sent. ph 08:38 Troponin HS Sent. ph 09:00 EKG done, by ED staff, reviewed by Luis Bullard MD. em1 09:25 Patient has correct armband on for positive identification. Bed in low position. Call ph light in reach. Side rails up X 1. patient monitor on. Pulse ox on. NIBP on. Door closed. Noise minimized. :26 No provider procedures requiring assistance completed. IV discontinued, intact, ph bleeding controlled, No redness/swelling at site. Pressure dressing applied. Administered Medications: 08:38 Drug: Losartan PO 50 mg PO once Route: PO; ph 09:20 Follow up: Response: No adverse reaction; Blood pressure is lowered ph Medication: : VIS not applicable for this client. ph Outcome: 09:53 Discharge ordered by MD. rn 09:58 Patient left the ED. ph 09:58 Discharged to home ambulatory, ph 09:58 Condition: good :58 Discharge instructions given to patient, Instructed on discharge instructions, follow up and referral plans. medication usage, Demonstrated understanding of instructions, follow-up care, medications, Prescriptions given X 1, Signatures: Dispatcher [employer] EDMS Luis Bullard MD MD rn Martinez, Eric em1 Cari Kumar RN RN ph Mitchell, Ginger gm2 Corrections: (The following items were deleted from the chart) 07: 07:18 Chief complaint: Patient states: Out of BP medication, states that he takes ph Losartan 50 mg, called PCP and cannot get appointment until next week. ph
--- NOTE | 2024-01-23 09:54 | EDPHYS ---
Physician Documentation [facility] Name: Samuel Guzman Age: 59 yrs Sex: Male : 1965 Arrival Date: 01/23/2024 Time: 06:45 Bed 13 Private MD: ED Physician Luis Bullard HPI: 01/22 07:38 This 59 yrs old Black Male presents to ER via Ambulatory with complaints of High Blood rn Pressure. 07:38 The patient has elevated blood pressure and discovered this at home. Onset: The rn symptoms/episode began/occurred Chronic. Modifying factors: The symptoms are aggravated by discontinuation of meds. Severity of symptoms: At its worst the blood pressure was moderate, in the emergency department the blood pressure is improved. The patient has experienced similar episodes in the past. Patient reports does not have PCP, comes here for blood pressure medication refill. Reports ran out of medication a couple of months ago and has slowly felt worse and worse. Reports left arm pain and tingling without chest pain or shortness of breath. Denies injury. No weakness. No discoloration.. Historical: - Allergies: 07:24 No Known Allergies; ph - Home Meds: 07:24 losartan 50 mg Oral tablet daily [Active]; ph - PMHx: 07:24 Hypertension; ph - Immunization history:: Adult Immunizations unknown. - Infectious Disease History:: Denies. - Social history:: Smoking status: Patient reports the use of cigarette tobacco products, smokes one-half pack cigarettes per day. - Family history:: not pertinent. - Hospitalizations: : No recent hospitalization is reported. ROS: 07:38 Constitutional: Negative for fever, chills, and weight loss, Neck: Negative for injury, rn pain, and swelling, Cardiovascular: Negative for chest pain, palpitations, and edema, Respiratory: Negative for shortness of breath, cough, wheezing, and pleuritic chest pain, Abdomen/GI: Negative for abdominal pain, nausea, vomiting, diarrhea, and constipation, Back: Negative for injury and pain, MS/Extremity: Positive for left arm tingling Skin: Negative for injury, rash, and discoloration, Neuro: Negative for headache, weakness, and seizure, Exam: 07:38 Constitutional: This is a well developed, well nourished patient who is awake, alert, rn and in no acute distress. Head/Face: Normocephalic, atraumatic. Neck: Trachea midline. Supple, full range of motion without nuchal rigidity, or vertebral point tenderness. No Meningismus. Cardiovascular: Regular rate and rhythm. no JVD. No pulse deficits. Respiratory: No increased work of breathing, no retractions or nasal flaring. Abdomen/GI: Soft, non-tender Skin: No discoloration MS/ Extremity: Pulses equal, no cyanosis. Neurovascular intact. Full, normal range of motion. Equal circumference. Neuro: Awake and alert, GCS 15, oriented to person, place, time, and situation. Cranial nerves II-XII grossly intact. Motor strength 5/5 in all extremities. Sensory grossly intact. Cerebellar exam normal. Ambulatory to room without difficulty or assistance 10:10 ECG was reviewed by the Attending Physician. rn Vital Signs: 07:18 BP 171 / 118; Pulse 86; Resp 18; Temp 97.8; Pulse Ox 95% on R/A; Weight 86.18 kg; ph Height 5 ft. 11 in. ; 07:28 BP 167 / 99; ph 08:30 BP 162 / 94; Pulse 81; Resp 18; Pulse Ox 99% on R/A; ph 09:24 BP 159 / 89; Pulse 84; Resp 18; Pulse Ox 98% on R/A; ph 07:18 Body Mass Index 26.50 (86.18 kg, 180.34 cm) ph MDM: 06:58 Medical Screening Exam initiated rn 09:52 Differential diagnosis: Malignant HTN. Data reviewed: vital signs, nurses notes, technology lab teacher test result(s), EKG, radiologic studies, plain films, and as a result, I will discharge patient. Counseling: I had a detailed discussion with the patient and/or guardian regarding the historical points, exam findings, and any diagnostic results supporting the discharge/admit diagnosis, the presence of at least one elevated blood pressure reading (>120/80) during this emergency department visit, lab results, radiology results, the need for outpatient follow up, to return to the emergency department if symptoms worsen or persist or if there are any questions or concerns that arise at home. Special discussion: I have referred the patient to see his PCP for further evaluation of high blood pressure. I discussed with the patient/guardian in detail that at this point there is no indication for admission to the hospital. It is understood, however, that if the symptoms persist or worsen the patient needs to return immediately for re-evaluation. 01/22 07:34 Order name: Basic Metabolic Panel; Complete Time: 09:38 rn 01/22 07:34 Order name: CBC with Diff; Complete Time: 09:38 rn 01/22 07:34 Order name: NT PRO-BNP; Complete Time: 09:38 rn 01/22 07:34 Order name: Troponin HS; Complete Time: 09:38 rn 01/22 07:34 Order name: XRAY Chest (1 view); Complete Time: 09:38 rn 01/22 07:34 Order name: EKG; Complete Time: 07:35 rn 01/22 07:34 Order name: Cardiac monitoring; Complete Time: 08:38 rn 01/22 07:34 Order name: EKG - Nurse/Tech; Complete Time: 09:00 rn 01/22 07:34 Order name: IV Saline Lock; Complete Time: 08:38 rn 01/22 07:34 Order name: Labs collected and sent; Complete Time: 08:38 rn 01/22 07:34 Order name: O2 Per Protocol; Complete Time: 08:38 rn 01/22 07:34 Order name: O2 Sat Monitoring; Complete Time: 08:38 rn EC:10 Rate is 61 beats/min. Rhythm is regular. QRS [place] is Normal. PA interval is normal. QRS rn interval is normal. QT interval is normal. No Q waves. T waves are Normal. No ST changes noted. Clinical impression: Normal ECG. Interpreted by me. Reviewed by me. Administered Medications: 08:38 Drug: Losartan PO 50 mg PO once Route: PO; ph 09:20 Follow up: Response: No adverse reaction; Blood pressure is lowered ph Disposition Summary: 01/23/24 09:53 Discharge Ordered Notes: Location: Home rn Problem: new rn Symptoms: have improved rn Condition: Stable rn Diagnosis - Essential (primary) hypertension rn Followup: rn - With: Private Physician - When: As needed - Reason: Recheck today's complaints, Re-evaluation by your physician Discharge Instructions: - Discharge Summary Sheet rn - Hypertension, Adult rn - Managing Your Hypertension rn Forms: - Medication Reconciliation Form rn - Antibiotic nurse extern - Prescription Opioid Use rn - Patient Portal Instructions rn - Leadership Thank You Letter rn Prescriptions: - losartan 50 mg Oral tablet - take 1 tablet ORAL route daily; 180 tablet; Refills: 0, Product Selection rn Permitted Signatures: Dispatcher [employer] Luis Lomeli MD MD rn Hall, Patricia, RN RN ph
[2024-01-23 15:03] VITALS: TEMP 97.8
[2024-01-23 15:14] VITALS: BP 159/89; O2SAT 98
== END 2024-01-23 09:58 | disposition home or self-care (01) ==
LOC: ER 06:45
DX: I10 Essential (primary) hypertension (principal); F17.210 Nicotine dependence, cigarettes, uncomplicated
CPT/HCPCS: 36415; 71045; 80048; 83880; 84484; 85025; 99285

== ENCOUNTER 2024-06-11 04:36 | Emergency (ER) | payer BC ==
[2024-06-11] MEDS ORDERED: KETOROLAC 30 MG/ML INJ ONE (05:08)
[2024-06-11] MEDS ORDERED: NA CHLORIDE 0.9% 1,000 ML ONE (05:08)
[2024-06-11 05:14] LABS: Absolute Eosinophils 0.1 K/uL (0-0.5); Absolute Lymphocytes (CBC) 1.6 K/uL (0.7-4.9); Absolute Monocytes 0.5 K/uL (0.1-1.3); Absolute Neutrophil 5.4 K/uL (1.8-8.0); Basophils % 0.6 % (0-1.3); Eosinophils % 1.1 % (0-4.4); Hematocrit 39.3 % (39.6-49.0); Hemoglobin 13.7 g/dL (13.6-17.9); MCH 30.9 pg (27.0-35.0); MCHC 34.9 g/dL (32.0-36.0); MCV 88.6 fL (80-100); Monocytes % 6.5 % (3.3-12.3); Neutrophils % 70.8 % (41.7-73.7); Platelets 229 thou/uL (152-406); RBC Red Blood Cell Count 4.43 M/uL (4.33-5.43); Red Cell Distribution Width 12.9 % (12.1-15.2)
[2024-06-11 05:32] LABS: Albumin 3.7 g/dL (3.4-5.0); Albumin/Globulin Ratio 0.9 (1.1-1.8); Bilirubin Total 0.6 mg/dL (0.2-1.0); Protein, Total 7.7 g/dL (6.4-8.2)
[2024-06-11 05:45] LABS: Barbiturates NEGATIVE (NEGATIVE); Benzodiazepines NEGATIVE (NEGATIVE); Cocaine NEGATIVE (NEGATIVE); METHAMPHETAM NEGATIVE (NEGATIVE); Methadone NEGATIVE (NEGATIVE); Opiates NEGATIVE (NEGATIVE); Phencyclidine NEGATIVE (NEGATIVE); Specific Gravity 1.011 (1.005-1.030); Sqamous Epithelial <5 /HPF (None Seen); THC Cannibis NEGATIVE (NEGATIVE); Urine Bacteria None Seen /HPF (<20); Urine Bilirubin NEGATIVE (Negative); Urine Blood Negative (Negative); Urine Clarity Clear (Clear); Urine Color Light-Yellow (Yellow); Urine Culture Reflex Order NOT NEEDED; Urine Glucose NEGATIVE (Negative); Urine Ketones NEGATIVE (Negative); Urine Microscopic Reflex YN ORDER UMIC; Urine Nitrite NEGATIVE (Negative); Urine Protein NEGATIVE (Negative); Urine RBC <5 /HPF (None Seen); Urine Urobilinogen Normal (Normal); Urine WBC <5 /HPF (<5)
--- NOTE | 2024-06-11 06:23 | EDPHYS ---
Physician Documentation [facility] Name: Samuel Guzman Age: 59 yrs Sex: Male : 1965 Arrival Date: 06/11/2024 Time: 04:36 Bed 4 Private MD: ED Physician Danni Leung HPI: 06/11 06:24 This 59 yrs old Black Male presents to ER via Ambulatory with complaints of Abdominal gb1 Pain. 06:24 59-year-old -[place] male with chronic abdominal pain he has been constipated gb1 in the past. He has a history of hypertension. No nausea vomiting or diarrhea. Patient eats a lot of fast food and denies any fever or chills.. Historical: - Allergies: 04:55 No Known Allergies; br2 - PMHx: 04:55 Hypertension; br2 - Immunization history:: Adult Immunizations up to date. - Infectious Disease History:: Denies. - Social history:: Smoking status: Patient reports the use of cigarette tobacco products, smokes one pack cigarettes per day. Patient/guardian denies using alcohol, street drugs. Exam: 06:25 Constitutional: This is a well developed, well nourished patient who is awake, alert, gb1 and in no acute distress. Head/Face: Normocephalic, atraumatic. Eyes: Pupils equal round and reactive to light, extra-ocular motions intact. Lids and lashes normal. Conjunctiva and sclera are non-icteric and not injected. Cornea within normal limits. Periorbital areas with no swelling, redness, or edema. ENT: Nares patent. No nasal discharge, no septal abnormalities noted. Tympanic membranes are normal and external auditory canals are clear. Oropharynx with no redness, swelling, or masses, exudates, or evidence of obstruction, uvula midline. Mucous membranes moist. Neck: Trachea midline, no thyromegaly or masses palpated, and no cervical lymphadenopathy. Supple, full range of motion without nuchal rigidity, or vertebral point tenderness. No Meningismus. Chest/axilla: Normal chest wall appearance and motion. Nontender with no deformity. No lesions are appreciated. Cardiovascular: Regular rate and rhythm with a normal S1 and S2. No gallops, murmurs, or rubs. Normal PMI, no JVD. No pulse deficits. Respiratory: Lungs have equal breath sounds bilaterally, clear to auscultation and percussion. No rales, rhonchi or wheezes noted. No increased work of breathing, no retractions or nasal flaring. Abdomen/GI: Soft, non-tender, with normal bowel sounds. No distension or tympany. No guarding or rebound. No evidence of tenderness throughout. Back: No spinal tenderness. No costovertebral tenderness. Full range of motion. Skin: Warm, dry with normal turgor. Normal color with no rashes, no lesions, and no evidence of cellulitis. MS/ Extremity: Pulses equal, no cyanosis. Neurovascular intact. Full, normal range of motion. Vital Signs: 04:52 BP 177 / 114; Pulse 69; Resp 18; Temp 97.3(TE); Pulse Ox 99% on R/A; Weight 65.77 kg; br2 Height 97 ft. 6 in. ; 06:09 BP 170 / 97; Pulse 84; Resp 16; Pulse Ox 97% ; vc1 04:52 Body Mass Index 0.07 (65.77 kg, 2971.8 cm) br2 MDM: 05:04 Medical Screening Exam initiated gb1 06:25 Data reviewed: vital signs, nurses notes, lab test result(s), CBC, electrolytes. ED gb1 course: 59-year-old -[place] male with recurrent abdominal crampy pain. No peritoneal signs no rebound or guarding. I doubt acute appendicitis acute cholecystitis or small bowel obstruction. Patient admits that his diet is poor and he is likely constipated I reiterated healthy diet and healthy eating patterns to avoid constipation. I recommended Bentyl for crampy pain and Metamucil fiber for every day as well as increasing water intake. Patient is compliant with his plan of care discharge and will follow-up with his primary care doctor of record in 2 to 3 days. He is also been given extensive return precautions which he is compliant to prior discharge him today.. 06/11 05:01 Order name: CBC with Diff; Complete Time: 06:01 06/11 05:01 Order name: CMP; Complete Time: 06:01 06/11 05:01 Order name: Lipase; Complete Time: 06:01 06/11 05:01 Order name: Urinalysis w/ reflexes; Complete Time: 06:01 06/11 05:01 Order name: UDS; Complete Time: 06:01 gb1 06/11 05:01 Order name: IV Saline Lock; Complete Time: 05:03 gb1 06/11 05:01 Order name: Labs collected and sent; Complete Time: 05:03 gb1 Administered Medications: 05:15 Drug: NS 0.9% IV 1000 ml IV at 1 bolus Per protocol; to be given as a bolus over 60 vc1 minutes Route: IV; Rate: 1 bolus; Site: right antecubital; 06:30 Follow up: IV Status: Completed infusion cp4 05:15 Drug: Ketorolac IVP 30 mg IVP once Route: IVP; Site: right antecubital; vc1 06:30 Follow up: Response: No adverse reaction cp4 Disposition Summary: 06/11/24 06:22 Discharge Ordered Notes: Location: Home gb1 Problem: new gb1 Symptoms: have improved gb1 Condition: Stable gb1 Diagnosis - Generalized abdominal tenderness gb1 - Constipation gb1 Followup: gb1 - With: Private Physician - When: 2 - 3 days - Reason: Further diagnostic work-up Discharge Instructions: - Discharge Summary Sheet gb1 - Constipation, Adult, [id number] gb1 Forms: - Medication Reconciliation Form gb1 - Antibiotic Education gb1 - Prescription Opioid Use gb1 - Patient Portal Instructions gb1 - Leadership Thank You Letter gb1 Prescriptions: - dicyclomine 10 mg Oral capsule - take 1 capsule ORAL route 3 times per day; 30 capsule; Refills: 0, Product gb1 Selection Permitted Signatures: Dispatcher [employer] EDMS Desi Sage RN RN vc1 Danni Leung MD MD gb1 Aviva Donato RN RN br2 Margarita Torre cp4
--- NOTE | 2024-06-11 06:23 | ER ---
Nurse's Notes [facility] Name: Samuel Guzman Age: 59 yrs Sex: Male : 1965 Arrival Date: 06/11/2024 Time: 04:36 Bed 4 Private MD: Diagnosis: Generalized abdominal tenderness;Constipation Presentation: 06/11 04:52 Chief complaint: Patient states: AB PAIN FOR SEVERAL WEEKS, WORSE TONIGHT. PT STATES HE br2 TOOK MOM 2 DAYS AGO AND HAS ONLY HAD 2 BM'S. PT DENIES N/V/D/F. Coronavirus screen: Client denies travel out of the [place] in the last 14 days. Ebola Screen: Patient denies exposure to infectious person. Initial Sepsis Screen: Does the patient meet any 2 criteria? No. Patient's initial sepsis screen is negative. Does the patient have a suspected source of infection? No. Patient's initial sepsis screen is negative. Risk Assessment: Do you want to hurt yourself or someone else? Patient reports no desire to harm self or others. Onset of symptoms is unknown. 04:52 Method Of Arrival: Ambulatory br2 04:52 Acuity: FRANCISCO 3 br2 Triage Assessment: 04:55 General: Appears in no apparent distress. comfortable, Behavior is calm, cooperative. br2 Pain: Complains of pain in right upper quadrant, left upper quadrant, right lower quadrant and left lower quadrant Pain currently is 10 out of 10 on a pain scale. GI: Reports lower abdominal pain, upper abdominal pain. Historical: - Allergies: 04:55 No Known Allergies; br2 - PMHx: 04:55 Hypertension; br2 - Immunization history:: Adult Immunizations up to date. - Infectious Disease History:: Denies. - Social history:: Smoking status: Patient reports the use of cigarette tobacco products, smokes one pack cigarettes per day. Patient/guardian denies using alcohol, street drugs. Screenin:56 [facility] ED Fall Risk Assessment (Adult) History of falling in the last 3 months, vc1 including since admission No falls in past 3 months (0 pts) Confusion or Disorientation No (0 pts) Intoxicated or Sedated No (0 pts) Impaired Gait No (0 pts) Mobility Assist Device Used No (0 pt) Altered Elimination No (0 pt) Score/Fall Risk Level 0 - 2 = Low Risk Oriented to surroundings, Maintained a safe environment, Educated pt \T\ family on fall prevention, incl call for assistance when getting out of bed, Hourly rounding (assess needs \T\ fall precautionary measures) done. Abuse screen: Denies threats or abuse. Nutritional screening: No deficits noted. Tuberculosis screening: No symptoms or risk factors identified. Assessment: 04:57 General: Appears in no apparent distress. uncomfortable, Behavior is calm, cooperative, vc1 appropriate for age. Pain: Complains of pain in abdomen Pain does not radiate. Pain currently is 10 out of 10 on a pain scale. Quality of pain is described as crampy, sharp, Alleviated by drinking warm liquids Noted to be grimacing. Neuro: Level of Consciousness is awake, alert, obeys commands, Oriented to person, place, time, situation, Appropriate for age. Cardiovascular: Heart tones S1 S2 present Capillary refill < 3 seconds Patient's skin is warm and dry. Respiratory: Airway is patent Respiratory effort is even, unlabored, Respiratory pattern is regular, symmetrical, Breath sounds are clear bilaterally. GI: Bowel sounds present X 4 quads. Abd is soft Abdomen is tender to palpation X 4 quads. : No deficits noted. No signs and/or symptoms were reported regarding the genitourinary system. EENT: No deficits noted. No signs and/or symptoms were reported regarding the EENT system. Derm: Skin is intact, is healthy with good turgor, Skin is dry, Skin is normal, Skin temperature is warm. Musculoskeletal: Circulation, motion, and sensation intact. Range of motion: intact in all extremities. 06:09 Reassessment: Patient and/or family updated on plan of care and expected duration. Pain vc1 level reassessed. Patient is alert, oriented x 3, equal unlabored respirations, skin warm/dry/pink. Patient states symptoms have improved. Vital Signs: 04:52 BP 177 / 114; Pulse 69; Resp 18; Temp 97.3(TE); Pulse Ox 99% on R/A; Weight 65.77 kg; br2 Height 97 ft. 6 in. ; 06:09 BP 170 / 97; Pulse 84; Resp 16; Pulse Ox 97% ; vc1 04:52 Body Mass Index 0.07 (65.77 kg, 2971.8 cm) br2 ED Course: 04:37 Patient arrived in ED. [id number] 04:55 Triage completed. br2 04:56 Arm band placed on right wrist. vc1 04:56 Patient has correct armband on for positive identification. Bed in low position. Call vc1 light in reach. Provided Education on: plan of care. Pulse ox on. NIBP on. 05:00 Danni Leung MD is Attending Physician. gb1 05:03 Inserted saline lock: 20 gauge in right antecubital area, using aseptic technique. vc1 Blood collected. Flushed with 10 mL NS. 05:14 Desi Sage, RN is Primary Nurse. vc1 06:29 No provider procedures requiring assistance completed. intact, bleeding controlled, No cp4 redness/swelling at site. Pressure dressing applied. Administered Medications: 05:15 Drug: NS 0.9% IV 1000 ml IV at 1 bolus Per protocol; to be given as a bolus over 60 vc1 minutes Route: IV; Rate: 1 bolus; Site: right antecubital; 06:30 Follow up: IV Status: Completed infusion cp4 05:15 Drug: Ketorolac IVP 30 mg IVP once Route: IVP; Site: right antecubital; vc1 06:30 Follow up: Response: No adverse reaction cp4 Medication: 04:57 VIS not applicable for this client. vc1 Outcome: 06:22 Discharge ordered by . gb1 06:29 Discharged to home ambulatory, cp4 06:29 Condition: stable 06:29 Discharge instructions given to patient, Instructed on discharge instructions, follow up and referral plans. medication usage, Demonstrated understanding of instructions, follow-up care, medications, Prescriptions given X 1, 06:30 Patient left the ED. cp4 Signatures: Veronica Mcclendon [id number] Desi Sage, RN RN vc1 Danni Leung MD MD gb1 Margarita Torre cp4 Aviva Donato RN RN br2
[2024-06-11 06:40] VITALS: TEMP 97.3
[2024-06-11 06:45] VITALS: BP 170/97; O2SAT 97
== END 2024-06-11 06:30 | disposition home or self-care (01) ==
LOC: ER 04:36
DX: K59.00 Constipation, unspecified (principal); I10 Essential (primary) hypertension; F17.210 Nicotine dependence, cigarettes, uncomplicated
CPT/HCPCS: 96361; 85025; 81001; 36415; 83690; 80053; 80307; 96374; 99284; J7030

== ENCOUNTER 2024-06-12 14:01 | Emergency (ER) | payer BC ==
[2024-06-12] MEDS ORDERED: ONDANSETRON 4 MG/2 ML VIAL ONE (15:55)
[2024-06-12] MEDS ORDERED: FAMOTIDINE 20 MG/2 ML VIAL IV ONE (15:55)
[2024-06-12 16:17] LABS: Absolute Basophils 0.1 K/uL (0-0.5); Absolute Eosinophils 0.2 K/uL (0-0.5); Absolute Lymphocytes (CBC) 2.2 K/uL (0.7-4.9); Absolute Monocytes 0.5 K/uL (0.1-1.3); Absolute Neutrophil 6.6 K/uL (1.8-8.0); Basophils % 0.6 % (0-1.3); Eosinophils % 2.4 % (0-4.4); Hematocrit 37.7 % (39.6-49.0); Hemoglobin 13.2 g/dL (13.6-17.9); MCH 30.6 pg (27.0-35.0); MCHC 35.1 g/dL (32.0-36.0); MPV 7.5 fL (7.6-11.3); Monocytes % 4.9 % (3.3-12.3); Neutrophils % 69.1 % (41.7-73.7); Nucleated Red Blood Cells % 0.1 % (0-0); Platelets 232 thou/uL (152-406); RBC Red Blood Cell Count 4.33 M/uL (4.33-5.43); Red Cell Distribution Width 12.8 % (12.1-15.2)
[2024-06-12 16:46] LABS: Albumin 3.5 g/dL (3.4-5.0); Albumin/Globulin Ratio 0.9 (1.1-1.8); Anion Gap 7.8 mEq/L (5.0-15.0); Bilirubin Total 0.6 mg/dL (0.2-1.0); Magnesium 1.9 mg/dL (1.6-2.4); Potassium 3.8 mEq/L (3.5-5.1); Protein, Total 7.5 g/dL (6.4-8.2)
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
[2024-06-12] MEDS ORDERED: MAGNES/ALUMIN/SIMET 30ML UCUP ONE (18:09)
[2024-06-12] MEDS ORDERED: LIDOCAINE VISCOUS 2% 10ML ORAL SOLN ONE (18:09)
--- NOTE | 2024-06-12 18:10 | ER ---
Nurse's Notes [facility] Name: Samuel Guzman Age: 59 yrs Sex: Male : 1965 Arrival Date: 06/12/2024 Time: 14:01 Bed 25 Private MD: Diagnosis: Abdominal pain, Generalized;Acute gastritis without bleeding Presentation: 06/12 14:24 Chief complaint: Patient states: upper abd pain that began months ago, got worse the ss past week. Pt reports he was seen in ER yesterday and is not feeling better since his visit. Denies N/V/D. Coronavirus screen: Client denies travel out of the [place] in the last 14 days. Ebola Screen: Patient denies exposure to infectious person. Patient denies travel to an Ebola-affected area in the 21 days before illness onset. Initial Sepsis Screen: Does the patient meet any 2 criteria? No. Patient's initial sepsis screen is negative. Does the patient have a suspected source of infection? No. Patient's initial sepsis screen is negative. Risk Assessment: Do you want to hurt yourself or someone else? Patient reports no desire to harm self or others. Onset of symptoms is unknown. 14:24 Method Of Arrival: Ambulatory ss 14:24 Acuity: FRANCISCO 3 ss Historical: - Allergies: 14:27 No Known Allergies; ss - Home Meds: 14:27 losartan 50 mg Oral tablet daily [Active]; ss - PMHx: 14:27 Hypertension; ss - PSHx: 14:27 exploratory abdominal surgery; ss - Immunization history:: Adult Immunizations up to date. - Infectious Disease History:: Denies. - Social history:: Smoking status: Patient denies any tobacco usage or history of. Screenin:10 [facility] ED Fall Risk Assessment (Adult) History of falling in the last 3 months, ld1 including since admission No falls in past 3 months (0 pts) Confusion or Disorientation No (0 pts) Intoxicated or Sedated No (0 pts) Impaired Gait No (0 pts) Mobility Assist Device Used No (0 pt) Altered Elimination No (0 pt) Score/Fall Risk Level 0 - 2 = Low Risk Oriented to surroundings, Hourly rounding (assess needs \T\ fall precautionary measures) done. Abuse screen: Denies threats or abuse. Denies injuries from another. Nutritional screening: No deficits noted. Tuberculosis screening: No symptoms or risk factors identified. Assessment: 16:10 General: Appears in no apparent distress. comfortable, Behavior is calm, cooperative, ld1 appropriate for age. Pain: Complains of pain in abdomen Pain does not radiate. Pain currently is 8 out of 10 on a pain scale. Quality of pain is described as sharp, shooting, throbbing, Pain began 2-3 days ago. Is continuous. Neuro: Level of Consciousness is awake, alert, obeys commands, Oriented to person, place, time, situation. Cardiovascular: Capillary refill < 3 seconds Patient's skin is warm and dry. Respiratory: Airway is patent Respiratory effort is even, unlabored. GI: Abdomen is flat, non-distended, Bowel sounds present X 4 quads. Abd is soft Abdomen is tender to palpation. : No signs and/or symptoms were reported regarding the genitourinary system. EENT: No signs and/or symptoms were reported regarding the EENT system. Derm: No signs and/or symptoms reported regarding the dermatologic system. Musculoskeletal: No signs and/or symptoms reported regarding the musculoskeletal system. 18:29 Reassessment: Patient appears in no apparent distress at this time. No changes from ld1 previously documented assessment. Patient and/or family updated on plan of care and expected duration. Pain level reassessed. Patient is alert, oriented x 3, equal unlabored respirations, skin warm/dry/pink. Vital Signs: 14:24 BP 139 / 98; Pulse 84; Resp 16; Temp 98.8; Pulse Ox 99% on R/A; Weight 68.95 kg; Height ss 5 ft. 11 in. ; Pain 10/10; 16:10 BP 153 / 95; Pulse 85; Resp 18; Pulse Ox 97% on R/A; Pain 8/10; ld1 18:29 BP 146 / 79; Pulse 82; Resp 18; Pulse Ox 100% on R/A; ld1 14:24 Body Mass Index 21.20 (68.95 kg, 180.34 cm) ss 14:24 Pain Scale: Adult ss 16:10 Pain Scale: Adult ld1 ED Course: 14:02 Patient arrived in ED. im 14:06 Tierra Agudelo MD is Attending Physician. sw6 14:27 Triage completed. ss 14:27 Arm band placed on left wrist. ss 15:03 Radiology exam delayed due to lab results not completed at this time. (BUN/Creatinine) jc4 IV insertion attempt and/or patient not having appropriate IV at this time. 15:28 Radiology exam delayed due to lab results not completed at this time. (BUN/Creatinine) nj IV insertion attempt and/or patient not having appropriate IV at this time. 15:43 Reanna Woodruff, RN is Primary Nurse. ld1 16:10 Patient has correct armband on for positive identification. Placed in gown. Bed in low ld1 position. Call light in reach. Side rails up X2. Pulse ox on. NIBP on. Door closed. Noise minimized. Warm blanket given. 16:10 No provider procedures requiring assistance completed. Inserted saline lock: 20 gauge ld1 in right forearm, using aseptic technique. Blood collected. Flushed with 10 mL NS. 17:22 CT Abd/Pelvis - IV Contrast Only In Process Unspecified. EDMS 18:10 Umberto Arredondo MD is Referral Physician. 18:29 IV discontinued, intact, bleeding controlled, No redness/swelling at site. ld1 Administered Medications: 16:09 Drug: Famotidine IVP 20 mg IVP once; dilute with 10 mL 0.9% NaCl; give over 2 minutes ld1 Route: IVP; Site: right forearm; 16:10 Drug: Ondansetron IVP 4 mg IVP once; over 2 minutes Route: IVP; Site: right forearm; ld1 18:11 Drug: GI Cocktail with - (Maalox PO 30 ml, Lidocaine Mucous Membrane 2 % 20 ld1 ml, Phenobarbital-Belladonna PO 10 ml) PO once Route: PO; Medication: 16:10 VIS not applicable for this client. ld1 Outcome: 18:10 Discharge ordered by . sw6 18:29 Discharged to home ambulatory, ld1 18:29 Condition: stable 18:29 Discharge instructions given to patient, Instructed on discharge instructions, follow up and referral plans. medication usage, Demonstrated understanding of instructions, follow-up care, 18:30 Patient left the ED. ld1 Signatures: Dispatcher [employer] EDMS Valorie Jean-Baptiste RN RN Dago Birch Lauren, RICKEY RN ld1 Angelica Bernard Sandra, MD MD sw6 Haywood, Donnie jc4
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
[2024-06-12 19:05] VITALS: TEMP 98.8
[2024-06-12 19:08] VITALS: BP 146/79; O2SAT 100
== END 2024-06-12 18:30 | disposition home or self-care (01) ==
LOC: ER 14:01
DX: K29.00 Acute gastritis without bleeding (principal); I10 Essential (primary) hypertension
CPT/HCPCS: 85025; 36415; 83735; 83690; 80053; 74177; 96375; 96374; 99284; Q9967; J2405

== ENCOUNTER 2024-09-30 19:17 | Emergency (ER) | payer BC ==
--- NOTE | 2024-09-30 19:49 | ER ---
Nurse's Notes [facility] Name: Samuel Guzman Age: 59 yrs Sex: Male : 1965 Arrival Date: 09/30/2024 Time: 19:17 Bed 11 Private MD: Diagnosis: Acute gastritis Presentation: 09/30 19:36 Chief complaint: Patient states: abdominal pain X2 months and need HTN medications lg3 refilled. Coronavirus screen: Client denies travel out of the [place] in the last 14 days. At this time, the client does not indicate any symptoms associated with coronavirus-19. Ebola Screen: No symptoms or risks identified at this time. Risk Assessment: Do you want to hurt yourself or someone else? Patient reports no desire to harm self or others. Onset of symptoms is unknown. 19:36 Method Of Arrival: Ambulatory lg3 19:36 Acuity: FRANCISCO 3 lg3 Triage Assessment: 19:38 General: Appears in no apparent distress. comfortable, Behavior is calm, cooperative. lg3 Pain: Complains of pain in abdomen Pain does not radiate. Pain currently is 8 out of 10 on a pain scale. EENT: No deficits noted. No signs and/or symptoms were reported regarding the EENT system. Neuro: No deficits noted. Wolf Agitation-Sedation Scale (RASS): 0 - Alert and Calm Level of Consciousness is awake, alert, obeys commands, Oriented to person, place, time, situation. Cardiovascular: No deficits noted. Denies chest pain, shortness of breath, Capillary refill < 3 seconds Clubbing of nail beds is absent JVD is absent Patient's skin is warm and dry. Respiratory: No deficits noted. Airway is patent Respiratory effort is even, unlabored, Respiratory pattern is regular, symmetrical. GI: Abdomen is flat, non-distended, Bowel sounds present X 4 quads. Reports lower abdominal pain, upper abdominal pain, cramping. : No signs and/or symptoms were reported regarding the genitourinary system. Derm: No deficits noted. No signs and/or symptoms reported regarding the dermatologic system. Skin is intact, is healthy with good turgor, Skin is dry, Skin is normal, Skin temperature is warm. Musculoskeletal: No deficits noted. No signs and/or symptoms reported regarding the musculoskeletal system. Circulation, motion, and sensation intact. Range of motion: intact in all extremities. Historical: - Allergies: 19:38 No Known Allergies; lg3 - Home Meds: 19:38 losartan 50 mg Oral tablet daily [Active]; lg3 - PMHx: 19:38 Hypertension; gastritis (Hypertension); lg3 - PSHx: 19:38 Exploratory abdominal surgery; lg3 - Immunization history:: Adult Immunizations up to date. - Infectious Disease History:: Denies. - Social history:: Smoking status: Patient reports the use of cigarette tobacco products, smokes one pack cigarettes per day. Patient uses alcohol, admits to "couple of beers" a day. Screenin:45 [facility] ED Fall Risk Assessment (Adult) History of falling in the last 3 months, al5 including since admission No falls in past 3 months (0 pts) Confusion or Disorientation No (0 pts) Intoxicated or Sedated No (0 pts) Impaired Gait No (0 pts) Mobility Assist Device Used No (0 pt) Altered Elimination No (0 pt) Score/Fall Risk Level 0 - 2 = Low Risk Oriented to surroundings, Maintained a safe environment, Hourly rounding (assess needs \\T\\ fall precautionary measures) done. Abuse screen: Denies threats or abuse. Denies injuries from another. Nutritional screening: No deficits noted. Tuberculosis screening: No symptoms or risk factors identified. Assessment: 19:46 General: Appears in no apparent distress. comfortable, Behavior is calm, cooperative. al5 Pain: Complains of pain in abdomen. Neuro: Level of Consciousness is awake, alert, obeys commands, Oriented to person, place, time, situation. Cardiovascular: Capillary refill < 3 seconds Patient's skin is warm and dry. Respiratory: Airway is patent Respiratory effort is even, unlabored, Respiratory pattern is regular, symmetrical. GI: Abdomen is flat, non-distended, Reports lower abdominal pain, upper abdominal pain. : No signs and/or symptoms were reported regarding the genitourinary system. EENT: No signs and/or symptoms were reported regarding the EENT system. Derm: Skin is intact, is healthy with good turgor, Skin is pink, warm \\T\\ dry. normal. Musculoskeletal: Circulation, motion, and sensation intact. Capillary refill < 3 seconds, Range of motion: intact in all extremities. Vital Signs: 19:36 Weight 68.04 kg (R); Height 5 ft. 11 in. (R); Pain 8/10; lg3 19:42 BP 182 / 121; Pulse 77; Resp 18; Temp 98.5; Pulse Ox 97% on R/A; al5 19:36 Body Mass Index 20.92 (68.04 kg, 180.34 cm) lg3 19:36 Pain Scale: Adult 3 ED Course: 19:20 Patient arrived in ED. im 19:22 Justin Bueno FNP-C [facility]. dr5 19:22 Jose Stokes MD is Attending Physician. dr5 19:38 Triage completed. lg3 19:38 Arm band placed on right wrist. lg3 19:42 Poornima Bailey, RICKEY is Primary Nurse. al5 19:45 Patient has correct armband on for positive identification. Bed in low position. Call al5 light in reach. Provided Education on: plan of care. 19:45 No provider procedures requiring assistance completed. Patient did not have IV access al5 during this emergency room visit. Administered Medications: 20:03 Drug: GI Cocktail without - (Maalox PO 30 ml, Lidocaine Mucous Membrane 2 % 15 al5 ml) PO once Route: PO; 20:07 Follow up: Response: No adverse reaction al5 20:07 Drug: Losartan PO 50 mg PO once Route: PO; al5 20:07 Follow up: Response: No adverse reaction; Medication administered at discharge. al5 Medication: 19:46 VIS not applicable for this client. al5 Outcome: 19:48 Discharge ordered by MD. dr5 20:07 Discharged to home ambulatory, al5 20:07 Condition: good 20:07 Discharge instructions given to patient, Instructed on discharge instructions, follow up and referral plans. medication usage, Demonstrated understanding of instructions, follow-up care, medications, Prescriptions given X 2, 20:07 Patient left the ED. al5 Signatures: Maribell Rodrigues RN RN 3 Angelica Bernard Poornima Bailey RN RN al5 Justin Bueno FNP-C [employer]-[id number]
--- NOTE | 2024-09-30 19:50 | EDPHYS ---
Physician Documentation [facility] Name: Samuel Guzman Age: 59 yrs Sex: Male : 1965 Arrival Date: 09/30/2024 Time: 19:17 Bed 11 Private MD: ED Physician Jose Stokes HPI: 09/30 23:24 This 59 yrs old Black Male presents to ER via Ambulatory with complaints of Medication dr5 Refill - Blood pressure medicine, Abdominal Pain. 23:24 Patient is a 59-year-old male with history of hypertension and gastritis coming in with dr5 upper abdominal pain that he describes as burning for the past 2 months. Patient reports that he has been seen for this and was diagnosed gastritis. Patient reports he has been taking Pepto-Bismol with no relief of symptoms. Patient reports he has a GI appointment on October 21, 2024 for a scope. Patient denies taking any medications for gastritis. Patient also reports that he needs a refill of his losartan as he has not been able to get to his primary care doctor due to appointment not being readily available to him. Patient denies chest pain, blurry vision, headache. Historical: - Allergies: 19:38 No Known Allergies; lg3 - Home Meds: 19:38 losartan 50 mg Oral tablet daily [Active]; lg3 - PMHx: 19:38 Hypertension; gastritis (Hypertension); lg3 - PSHx: 19:38 Exploratory abdominal surgery; lg3 - Immunization history:: Adult Immunizations up to date. - Infectious Disease History:: Denies. - Social history:: Smoking status: Patient reports the use of cigarette tobacco products, smokes one pack cigarettes per day. Patient uses alcohol, admits to "couple of beers" a day. ROS: 23:24 Constitutional: as per hpi dr5 Exam: 23:24 Constitutional: This is a well developed, well nourished patient who is awake, alert, dr5 and in no acute distress. Head/Face: Normocephalic, atraumatic. Eyes: Pupils equal round and reactive to light, extra-ocular motions intact. Lids and lashes normal. Conjunctiva and sclera are non-icteric and not injected. Cornea within normal limits. Periorbital areas with no swelling, redness, or edema. ENT: Nares patent. No nasal discharge, no septal abnormalities noted. Tympanic membranes are normal and external auditory canals are clear. Oropharynx with no redness, swelling, or masses, exudates, or evidence of obstruction, uvula midline. Mucous membranes moist. Neck: Trachea midline, no thyromegaly or masses palpated, and no cervical lymphadenopathy. Supple, full range of motion without nuchal rigidity, or vertebral point tenderness. No Meningismus. Chest/axilla: Normal chest wall appearance and motion. Nontender with no deformity. No lesions are appreciated. Cardiovascular: Regular rate and rhythm with a normal S1 and S2. Normal PMI, no JVD. No pulse deficits. Respiratory: Lungs have equal breath sounds bilaterally, clear to auscultation. No rales, rhonchi or wheezes noted. No increased work of breathing, no retractions or nasal flaring. Back: No spinal tenderness. No costovertebral tenderness. Full range of motion. Skin: Warm, dry with normal turgor. Normal color with no rashes, no lesions, and no evidence of cellulitis. MS/ Extremity: Pulses equal, no cyanosis. Neurovascular intact. Full, normal range of motion. Neuro: Awake and alert, GCS 15, oriented to person, place, time, and situation. Cranial nerves II-XII grossly intact. Motor strength 5/5 in all extremities. Sensory grossly intact. Cerebellar exam normal. Normal gait. 23:24 Abdomen/GI: Inspection: abdomen appears normal, Bowel sounds: normal, Palpation: mild abdominal tenderness, in the epigastric area, Vital Signs: 19:36 Weight 68.04 kg (R); Height 5 ft. 11 in. (R); Pain 8/10; lg3 19:42 BP 182 / 121; Pulse 77; Resp 18; Temp 98.5; Pulse Ox 97% on R/A; al5 19:36 Body Mass Index 20.92 (68.04 kg, 180.34 cm) lg3 19:36 Pain Scale: Adult lg3 MDM: 19:22 Medical Screening Exam initiated dr5 23:24 Data reviewed: vital signs, nurses notes. Consideration of Admission/Observation dr5 Escalation of care including admission/observation considered. Escalation considered if patient abdominal pain did not resolve after medication.. I considered the following discharge prescriptions or medication management in the emergency department I discussed and recommended Over The Counter medications, Medications were administered in the Emergency Department. See MAR. Care significantly affected by the following chronic conditions: Hypertension, Gastritis. Care significantly affected by the following Social Determinants of Health: Poor access to healthcare and/or lack of insurance, Poor access to transportation, Problems related to employment. Counseling: I had a detailed discussion with the patient and/or guardian regarding the historical points, exam findings, and any diagnostic results supporting the discharge/admit diagnosis, the presence of at least one elevated blood pressure reading (>120/80) during this emergency department visit, the need for outpatient follow up, for definitive care, an ENT specialist, to return to the emergency department if symptoms worsen or persist or if there are any questions or concerns that arise at home. Medication response: GI Cocktail relieved the patient's pain. The symptoms have resolved. Response to treatment: the patient's symptoms have resolved after treatment, the patient is now symptom free. Special discussion: I have referred the patient to see his PCP for further evaluation of high blood pressure. I discussed with the patient/guardian in detail that at this point there is no indication for admission to the hospital. It is understood, however, that if the symptoms persist or worsen the patient needs to return immediately for re-evaluation. Based on the presenting symptoms and work-up in the emergency department, I discussed in detail the need to arrange with the PCP or specialist an outpatient procedure, esophagogastroduodenoscopy by the GI specialist. ED course: GI cocktail given in ER with relief of symptoms. I refilled patient's losartan. Recommended keep appointment for EGD. I recommended starting Protonix daily which I will prescribe. I also gave patient [id number] Antoinette-Lanta to try and help gastritis. Recommended healthy foods. All questions answered. Strict ER precautions given.. Administered Medications: 20:03 Drug: GI Cocktail without - (Maalox PO 30 ml, Lidocaine Mucous Membrane 2 % 15 al5 ml) PO once Route: PO; 20:07 Follow up: Response: No adverse reaction al5 20:07 Drug: Losartan PO 50 mg PO once Route: PO; al5 20:07 Follow up: Response: No adverse reaction; Medication administered at discharge. al5 Disposition Summary: 09/30/24 19:48 Discharge Ordered Notes: Location: Home dr5 Condition: Stable dr5 Diagnosis - Acute gastritis dr5 Followup: dr5 - With: Emergency Department - When: As needed - Reason: Worsening of condition Followup: dr5 - With: Private Physician - When: 1 - 2 days - Reason: Recheck today's complaints, Continuance of care, Re-evaluation by your physician Discharge Instructions: - Discharge Summary Sheet dr5 - Gastritis, Adult dr5 Forms: - Work release form al5 - Medication Reconciliation Form dr5 - Patient Portal Instructions dr5 - Leadership Thank You Letter dr5 Prescriptions: - losartan 50 mg Oral tablet - take 1 tablet ORAL route daily; 90 tablet; Refills: 0, Product Selection dr5 Permitted - Protonix 40 mg Oral Tablet - take 1 tablet ORAL route once daily; 30 tablet; Refills: 0, Product Selection dr5 Permitted Signatures: Maribell Rodrigues RN RN lg3 Poornima Bailey RN RN al5 Justin Bueno, [employer]ER-Cdr5 Corrections: (The following items were deleted from the chart) 23:25 23:24 Patient is a 59-year-old male with history of hypertension and gastritis coming dr5 in with upper abdominal pain that he describes as burning for the past. dr5
[2024-09-30] MEDS ORDERED: MAGNES/ALUMIN/SIMET 30ML UCUP ONE (19:56)
[2024-09-30] MEDS ORDERED: LIDOCAINE VISCOUS 2% 10ML ORAL SOLN ONE (19:57)
[2024-09-30] MEDS ORDERED: LOSARTAN POTASSIUM 50 MG TABLET ONE (20:04)
[2024-09-30 21:09] VITALS: BP 182/121; TEMP 98.5; O2SAT 97
== END 2024-09-30 20:07 | disposition home or self-care (01) ==
LOC: ER 19:17
DX: K29.00 Acute gastritis without bleeding (principal); I10 Essential (primary) hypertension; F17.210 Nicotine dependence, cigarettes, uncomplicated
CPT/HCPCS: 99283